=== PATIENT | female | born 1990 | race Caucasian/White ===

== ENCOUNTER 2017-11-24 00:16 | Emergency (ER) | payer OTHER ==
--- NOTE | 2017-11-24 00:34 | ED ---
Female Urogenital HPI - General Chief complaint: Vaginal Bleeding Stated complaint: Abd pain/bleeding. 12 wk pg Time Seen by Provider: 11/24/17 00:20 Source: patient, RN notes reviewed Mode of arrival: ambulatory Limitations: no limitations - History of Present Illness Initial comments: 27-year-old female presents emergency Department chief complaint of vaginal bleeding in early . Patient states that she's approximate toe weeks along her [employer] is Dr. Noriega states that she's had a prior ultrasound which confirmed viable IUP. Patient is A2. Patient states that just prior arrival she went to the bathroom noticed some bright red blood. She does complain of some lower abdominal cramping denies fever, chills, nausea, vomiting , diarrhea constipation. She denies any dysuria. - Related Data Home Medications Medication Instructions Recorded Confirmed Metoclopramide HCl [Reglan] 5 mg PO Q12HR PRN 11/24/17 11/24/17 Pnv No.95/Ferrous Fum/Folic AC 1 each PO 11/24/17 [ Multivitamin Tablet] Allergies Allergy/AdvReac Type Severity Reaction Status Date / Time amoxicillin Allergy Rash/Hives Verified 09/16/17 13:19 hydrocodone bitartrate Allergy Nausea & Verified 09/16/17 13:19 [From Vicodin] Vomiting Penicillins Allergy Anaphylaxis Verified 09/16/17 13:19 procaine HCl [From Novocain] Allergy Rash/Hives Verified 09/16/17 13:19 venom-honey bee Allergy Anaphylaxis Verified 09/16/17 13:19 [bee venom (honey bee)] Review of Systems ROS Statement: Those systems with pertinent positive or pertinent negative responses have been documented in the HPI. ROS Other: All systems not noted in ROS Statement are negative. Past Medical History Past Medical History: Asthma Additional Past Medical History / Comment(s): ovarian cyst History of Any Multi-Drug Resistant Organisms: None Reported Past Surgical History: Section Past Psychological History: No Psychological Hx Reported Smoking Status: Never smoker Past Alcohol Use History: Rare Past Drug Use History: None Reported - Past Family History Mother Family Medical History: Asthma, Cancer General Exam General appearance: alert, in no apparent distress Neck exam: Present: normal inspection, full ROM. Absent: tenderness, meningismus, lymphadenopathy Respiratory exam: Present: normal lung sounds bilaterally. Absent: respiratory distress, wheezes, rales, rhonchi, stridor Cardiovascular Exam: Present: regular rate, normal rhythm, normal heart sounds. Absent: systolic murmur, diastolic murmur, rubs, gallop, clicks GI/Abdominal exam: Present: soft, tenderness (Mild suprapubic), normal bowel sounds. Absent: distended, guarding, rebound, rigid External exam: Present: normal external exam, other (Exam performed with RN Zee) Speculum exam: Present: vaginal bleeding, other ( material noted) Back exam: Absent: CVA tenderness (R), CVA tenderness (L) Skin exam: Present: warm, dry, intact, normal color. Absent: rash Course Vital Signs 11/24/17 00:19 Temperature 98.3 F Pulse Rate 83 Respiratory 20 Rate Blood Pressure 131/60 O2 Sat by Pulse 98 Oximetry - Reevaluation(s) Reevaluation #1: 11/24/17 01:28 Patient had a call light on after ultrasound the day going to the patient she states that she felt a large gush of blood at this time a pelvic exam was performed. There was a large all blood within the vaginal vault there was what appeared to be fetus. Patient updated on results of pelvic Medical Decision Making - Medical Decision Making 27-year-old female presented emergency department for vaginal bleeding in early . Ultrasound shows demise. Patient did have passage of material in emergency department. Bleeding is controlled at this time. She is AB+ blood type. Disposition Clinical Impression: Miscarriage Disposition: HOME SELF-CARE Condition: Stable Instructions: Miscarriage (ED) Additional Instructions: Please return to the Emergency Department if symptoms worsen or any other concerns. Referrals: Sivakumar Santana DO [Primary Care Provider] - 1-2 days Shamir Noriega DO [REFERRING] - 1-2 days Time of Disposition: 01:33
--- NOTE | 2017-11-24 01:18 | US ---
EXAMINATION TYPE: US OB <= 14 wk fetus DATE OF EXAM: 11/24/2017 COMPARISON: NONE CLINICAL HISTORY: Pain. Bleeding and cramping. EXAM PERFORMED: Transabdominal (TA) EXAM MEASUREMENTS: GESTATIONAL AGE / DATING Physician Established: (10 weeks/3 days) EDC: 06/19/2018 Dates by LMP: (10 weeks/3 days) EDC: Dates by First Scan: No previous this is first scan Dates by Current Scan for: (8 weeks/1 days) EDC: 07/05/2018 MATERNAL ANATOMY Uterus: 11.6 x 6.1 x 7.0 cm Right Ovary: 2.8 x 2.6 x 2.3cm Post CDS / Adnexa: wnl Presence of free fluid: no Presence of corpus luteal cyst: yes GESTATION / SURVEY CRL: 1.7 cm (8 weeks/1 days) Heart Rate: No cardiac activity seen. IUP: Demise Beta HcG (if available): Not available at this time Irregular gestational sac seen. pole visualized with no cardiac activity seen. IMPRESSION: There is intrauterine demise at approximately 8 weeks gestation.
[2017-11-24 01:47] VITALS: BP 125/63; PULSE 70; RESP 18; TEMP 98.6
== END 2017-11-24 01:46 | disposition home or self-care (01) ==
LOC: EC 00:16
DX: O03.9 Complete or unspecified spontaneous abortion without complication (principal); Z98.890 Other specified postprocedural states; Z3A.12 12 weeks gestation of pregnancy; Z88.0 Allergy status to penicillin; Z88.5 Allergy status to narcotic agent; Z88.4 Allergy status to anesthetic agent; Z91.030 Bee allergy status; Z79.899 Other long term (current) drug therapy
CPT/HCPCS: 76801; 88300; 99284

== ENCOUNTER 2018-01-13 21:48 | Observation (INO) | payer OTHER ==
[2018-01-13] MEDS ORDERED: NITROGLYCERIN SL TABS 0.4 MG TAB SUBLINGUAL STA ×3 (22:34)
[2018-01-13] MEDS ORDERED: ASPIRIN 81 MG PO STA (22:34)
--- NOTE | 2018-01-13 22:40 | ED ---
General Adult HPI - General Chief complaint: Chest Pain Stated complaint: chest pain Time Seen by Provider: 01/13/18 22:29 Source: patient, RN notes reviewed Mode of arrival: ambulatory Limitations: no limitations - History of Present Illness Initial comments: Patient is a pleasant 27-year-old female presenting to the emergency Department with chest discomfort. Discomfort is described as tightness or and ache. Discomfort is currently 6/10. Patient has discomfort left chest. There is also some discomfort in the left back near the shoulder blade. Symptoms have been occurring for a couple of weeks in the morning. Symptoms usually only last a couple hours at most and resolved. Today symptoms been present all day. Patient did have nausea with one episode of vomiting prior to arrival. Patient feels sweaty. Patient does feel short of breath. No worsening symptoms with position changes or deep breaths. - Related Data Home Medications Medication Instructions Recorded Confirmed No Known Home Medications [No 01/13/18 01/13/18 Known Home Medications] Allergies Allergy/AdvReac Type Severity Reaction Status Date / Time amoxicillin Allergy Rash/Hives Verified 01/13/18 22:29 hydrocodone bitartrate Allergy Nausea & Verified 01/13/18 22:29 [From Vicodin] Vomiting Penicillins Allergy Anaphylaxis Verified 01/13/18 22:29 procaine HCl [From Novocain] Allergy Rash/Hives Verified 01/13/18 22:29 venom-honey bee Allergy Anaphylaxis Verified 01/13/18 22:29 [bee venom (honey bee)] Review of Systems ROS Statement: Those systems with pertinent positive or pertinent negative responses have been documented in the HPI. ROS Other: All systems not noted in ROS Statement are negative. Constitutional: Denies: fever Eyes: Denies: eye pain ENT: Denies: ear pain Respiratory: Reports: dyspnea. Denies: cough Cardiovascular: Reports: chest pain Endocrine: Denies: heat or cold intolerance Gastrointestinal: Reports: nausea, vomiting. Denies: abdominal pain Genitourinary: Denies: dysuria Musculoskeletal: Reports: back pain Skin: Denies: rash Neurological: Denies: weakness Past Medical History Past Medical History: Asthma, No Reported History Additional Past Medical History / Comment(s): ovarian cyst History of Any Multi-Drug Resistant Organisms: None Reported Past Surgical History: Section Past Psychological History: No Psychological Hx Reported Smoking Status: Never smoker Past Alcohol Use History: None Reported, Rare Past Drug Use History: None Reported - Past Family History Mother Family Medical History: Asthma, Cancer General Exam Limitations: no limitations General appearance: alert, in no apparent distress Head exam: Present: atraumatic Eye exam: Present: normal appearance, PERRL ENT exam: Present: normal oropharynx Neck exam: Present: normal inspection Respiratory exam: Present: normal lung sounds bilaterally. Absent: chest wall tenderness Cardiovascular Exam: Present: regular rate, normal rhythm, normal heart sounds. Absent: diastolic murmur Expanded Peripheral pulses: 2+: Radial (R), Radial (L), Posterior Tibialis (R), Posterior Tibialis (L) GI/Abdominal exam: Present: soft. Absent: tenderness Extremities exam: Present: normal inspection. Absent: pedal edema, calf tenderness Back exam: Present: normal inspection. Absent: tenderness Neurological exam: Present: alert Psychiatric exam: Present: normal affect, normal mood Skin exam: Present: normal color Course Vital Signs 01/13/18 01/13/18 01/13/18 21:59 23:01 23:05 Temperature 98.6 F Pulse Rate 68 77 72 Respiratory 18 18 18 Rate Blood Pressure 123/72 123/60 122/58 O2 Sat by Pulse 98 Oximetry EKG Findings - EKG Comments: EKG Findings:: Normal sinus rhythm 65. RI 168. QRS 76. QT 398. QTC 413. Normal axis. Normal QRS. No acute ST change. Medical Decision Making - Medical Decision Making Patient reevaluated and resting comfortably in bed. Symptoms resolved with nitroglycerin. Patient is updated on results and plan. Case discussed in detail with Dr. Santana who is agreeable for admission and cardiology consultation. - Lab Data Result diagrams: 01/13/18 22:45 01/13/18 22:45 Lab Results 01/13/18 01/13/18 01/13/18 Range/Units 22:45 22:45 22:45 WBC 10.8 H (3.8-10.6) k/uL RBC 4.74 (3.80-5.40) m/uL Hgb 11.9 (11.4-16.0) gm/dL Hct 36.9 (34.0-46.0) % MCV 77.9 L (80.0-100.0) fL MCH 25.2 (25.0-35.0) pg MCHC 32.3 (31.0-37.0) g/dL RDW 13.3 (11.5-15.5) % Plt Count 383 (150-450) k/uL Neutrophils % 66 % Lymphocytes % 25 % Monocytes % 5 % Eosinophils % 3 % Basophils % 0 % Neutrophils # 7.1 (1.3-7.7) k/uL Lymphocytes # 2.7 (1.0-4.8) k/uL Monocytes # 0.5 (0-1.0) k/uL Eosinophils # 0.3 (0-0.7) k/uL Basophils # 0.0 (0-0.2) k/uL PT (9.0-12.0) sec INR (<1.2) APTT (22.0-30.0) sec D-Dimer (<0.60) mg/L FEU Sodium 141 (137-145) mmol/L Potassium 3.5 (3.5-5.1) mmol/L Chloride 103 (98-107) mmol/L Carbon Dioxide 26 (22-30) mmol/L Anion Gap 12 mmol/L BUN 6 L (7-17) mg/dL Creatinine 0.86 (0.52-1.04) mg/dL Est GFR (CKD-EPI)AfAm >90 (>60 ml/min/1.73 sqM) Est GFR (CKD-EPI)NonAf >90 (>60 ml/min/1.73 sqM) Glucose 88 (74-99) mg/dL Calcium 9.3 (8.4-10.2) mg/dL Magnesium 1.8 (1.6-2.3) mg/dL Total Bilirubin 0.3 (0.2-1.3) mg/dL AST 13 L (14-36) U/L ALT 18 (9-52) U/L Alkaline Phosphatase 45 (38-126) U/L Total Creatine Kinase 54 (30-135) U/L CK-MB (CK-2) <0.2 (0.0-2.4) ng/mL CK-MB (CK-2) Rel Index Troponin I <0.012 (0.000-0.034) ng/mL Total Protein 6.6 (6.3-8.2) g/dL Albumin 3.9 (3.5-5.0) g/dL Amylase 58 (30-110) U/L Lipase 82 (23-300) U/L 01/13/18 Range/Units 22:45 WBC (3.8-10.6) k/uL RBC (3.80-5.40) m/uL Hgb (11.4-16.0) gm/dL Hct (34.0-46.0) % MCV (80.0-100.0) fL MCH (25.0-35.0) pg MCHC (31.0-37.0) g/dL RDW (11.5-15.5) % Plt Count (150-450) k/uL Neutrophils % % Lymphocytes % % Monocytes % % Eosinophils % % Basophils % % Neutrophils # (1.3-7.7) k/uL Lymphocytes # (1.0-4.8) k/uL Monocytes # (0-1.0) k/uL Eosinophils # (0-0.7) k/uL Basophils # (0-0.2) k/uL PT 9.9 (9.0-12.0) sec INR 1.0 (<1.2) APTT 24.3 (22.0-30.0) sec D-Dimer 0.52 (<0.60) mg/L FEU Sodium (137-145) mmol/L Potassium (3.5-5.1) mmol/L Chloride (98-107) mmol/L Carbon Dioxide (22-30) mmol/L Anion Gap mmol/L BUN (7-17) mg/dL Creatinine (0.52-1.04) mg/dL Est GFR (CKD-EPI)AfAm (>60 ml/min/1.73 sqM) Est GFR (CKD-EPI)NonAf (>60 ml/min/1.73 sqM) Glucose (74-99) mg/dL Calcium (8.4-10.2) mg/dL Magnesium (1.6-2.3) mg/dL Total Bilirubin (0.2-1.3) mg/dL AST (14-36) U/L ALT (9-52) U/L Alkaline Phosphatase (38-126) U/L Total Creatine Kinase (30-135) U/L CK-MB (CK-2) (0.0-2.4) ng/mL CK-MB (CK-2) Rel Index Troponin I (0.000-0.034) ng/mL Total Protein (6.3-8.2) g/dL Albumin (3.5-5.0) g/dL Amylase (30-110) U/L Lipase (23-300) U/L - Radiology Data Interpreted by me: Chest x-ray shows no acute process Disposition Clinical Impression: Unstable angina pectoris Disposition: ADMITTED IP TO THIS [facility] Condition: Serious Referrals: Sivakumar Santana DO [Primary Care Provider] - 1-2 days Decision Time: 23:38
[2018-01-13 23:02] LABS: Basophils % (A) 0 %; Eosinophils # (A) 0.3 k/uL (0-0.7); Eosinophils % (A) 3 %; HCT 36.9 % (34.0-46.0); HGB 11.9 gm/dL (11.4-16.0); Lymphocytes # (A) 2.7 k/uL (1.0-4.8); Lymphocytes % (A) 25 %; MCH 25.2 pg (25.0-35.0); MCHC 32.3 g/dL (31.0-37.0); MCV 77.9 fL (80.0-100.0); Mean Platelet Volume 6.2; Monocytes # (A) 0.5 k/uL (0-1.0); Monocytes % (A) 5 %; Neutrophils # (A) 7.1 k/uL (1.3-7.7); Neutrophils % (A) 66 %; Platelet Count 383 k/uL (150-450); RBC 4.74 m/uL (3.80-5.40); RDW 13.3 % (11.5-15.5); WBC 10.8 k/uL (3.8-10.6)
[2018-01-13 23:03] LABS: ALT 18 U/L (9-52); AST 13 U/L (14-36); Albumin 3.9 g/dL (3.5-5.0); Alkaline Phosphatase 45 U/L (38-126); Amylase 58 U/L (30-110); Anion Gap 12 mmol/L; Blood Urea Nitrogen 6 mg/dL (7-17); Calcium 9.3 mg/dL (8.4-10.2); Carbon Dioxide 26 mmol/L (22-30); Chloride 103 mmol/L (98-107); Glucose 88 mg/dL (74-99); Lipase 82 U/L (23-300); Magnesium 1.8 mg/dL (1.6-2.3); Potassium 3.5 mmol/L (3.5-5.1); Sodium 141 mmol/L (137-145); Total Bilirubin 0.3 mg/dL (0.2-1.3); Total Protein 6.6 g/dL (6.3-8.2)
[2018-01-13] MEDS ORDERED: NITROGLYCERIN OINT 1 INCH/GM PACKET TOPICAL STA (23:07)
[2018-01-13 23:10] LABS: D-Dimer 0.52 mg/L FEU (<0.60); Partial Thromboplastin Time 24.3 sec (22.0-30.0); Prothrombin Time 9.9 sec (9.0-12.0)
[2018-01-13 23:14] LABS: Creatine Kinase 54 U/L (30-135)
[2018-01-13 23:27] LABS: Creatine Kinase MB <0.2 ng/mL (0.0-2.4); Troponin I <0.012 ng/mL (0.000-0.034)
[2018-01-13] MEDS ORDERED: NITROGLYCERIN SL TABS 0.4 MG TAB SUBLINGUAL PRN (23:34)
[2018-01-13] MEDS ORDERED: HEPARIN SODIUM,PORCINE 5,000 UNIT/ML 1 ML VIAL IV PRN (23:34)
[2018-01-13] MEDS ORDERED: HEPARIN SODIUM,PORCINE 5,000 UNIT/ML 1 ML VIAL IV ONE (23:34)
[2018-01-13] MEDS ORDERED: HEPARIN SOD,PORK IN 0.45% NACL 25,000 UNIT in 0.45% NACL 1 500ML.BAG IV SCH (23:45)
--- NOTE | 2018-01-14 00:03 | XR ---
EXAM: XR Chest, 2 Views CLINICAL HISTORY: Chest Pain TECHNIQUE: Frontal and lateral views of the chest. COMPARISON: No relevant prior studies available. FINDINGS: Lungs: Unremarkable. No consolidation. Pleural space: Unremarkable. No pneumothorax. Heart: Unremarkable. No cardiomegaly. Mediastinum: Unremarkable. Bones/joints: Unremarkable. IMPRESSION: Normal 2 views of the chest
[2018-01-14 00:46] VITALS: RESP 16
[2018-01-14 00:55] VITALS: BMI 25.0
[2018-01-14] MEDS ORDERED: NITROGLYCERIN OINT 1 INCH/GM PACKET TOPICAL SCH (06:00)
[2018-01-14 06:44] LABS: Mean Platelet Volume 6.1; Platelet Count 336 k/uL (150-450)
[2018-01-14 07:08] LABS: Cholesterol 134 mg/dL (<200); HDL Cholesterol 37 mg/dL (40-60); LDL Cholesterol,Calculated 84 mg/dL (0-99); Triglycerides 67 mg/dL (<150)
[2018-01-14 07:14] LABS: Creatine Kinase 44 U/L (30-135)
[2018-01-14 07:27] LABS: Creatine Kinase MB <0.2 ng/mL (0.0-2.4); Troponin I <0.012 ng/mL (0.000-0.034)
--- NOTE | 2018-01-14 08:35 | P.HPIM ---
History of Present Illness H&P Date: 01/14/18 Chief Complaint: Chest pain 27-year-old -[place] female who presented to the emergency room with a chief complaint of chest pain x 1 day. The patient stated she began having chest pain yesterday in the epigastric region and under her left breast. She states the pain radiated into her back and left shoulder blade. She states she also has been having nausea and an episode of emesis x 1 yesterday. Patient denies shortness of breath or coughing. She does report intermittent episodes of diaphoresis that she describes as "cold sweats". She denies lightheadedness or dizziness. Pain is not worse when she takes a deep breath and is not reproducible upon palpation. Patient did receive a nitroglycerin in the emergency room and her chest pain resolved. She was started on a heparin drip. The patient was asked if there was a possibility of being . She states "I dont think so but maybe". She states she is due for her menstrual cycle any day. Patient states she had a miscarriage in November of this year. The patient has a history of asthma and ovarian cysts. She is a nonsmoker. Chest x-ray: negative for acute process. EKG: Sinus rhythm. Rate 65. Laboratory data: WBC 10.8. Hemoglobin 11.9. Platelet count 383. Sodium 141. Potassium 3.5. BUN 6. Creatinine 0.86. Magnesium 1.8. AST 13. ALT 18. Amylase 58. Lipase 82. Troponins: Negative 2. D-dimer 0.52 Lipid panel: Triglycerides 67, cholesterol 134, LDL 84, HDL 37 The patient was admitted to the hospital under the care of Dr. Santana to the observation unit. Consultations were placed to cardiology. Review of Systems GENERAL: Patient denies fever. Denies chills. EYES: Denies blurred vision. Denies vision changes. Denies eye pain. EARS, NOSE, MOUTH, & THROAT: Denies headache. Denies sore throat. RESPIRATORY: Denies cough. Denies shortness of breath. Denies sputum production. Denies hemoptysis. CARDIOVASCULAR: Positive for chest pain near the epigastrium and left breast that radiates to her back and left shoulder blade, currently denying chest pain. Denies palpitations. Denies arrhythmias. GASTROINTESTINAL: Positive for nausea and vomiting yesterday, which has resolved. Denies abdominal pain. Denies diarrhea. Denies constipation. Denies heartburn. Denies blood in the stool. GENITOURINARY: Denies urinary frequency. Denies burning. Denies dysuria. Denies cloudy urine. Denies blood in the urine. MUSCULOSKELETAL: Denies myalgias. Denies joint swelling. Denies decreased range of motion beyond patients baseline. INTEGUMENTARY: Denies pruitis. Denies rash. PSYCHIATRIC: Denies suicidal or homicial ideations. ENDOCRINE: Positive for diaphoresis. Denies weight change. Denies polydipsia. Denies polyuria. HEMATOLOGIC: Denies bleeding disorders. Past Medical History Past Medical History: Asthma Additional Past Medical History / Comment(s): ovarian cyst, childhood asthma not on meds now History of Any Multi-Drug Resistant Organisms: None Reported Past Surgical History: Section Additional Past Surgical History / Comment(s): c section x 1 Past Anesthesia/Blood Transfusion Reactions: No Reported Reaction Past Psychological History: No Psychological Hx Reported Smoking Status: Never smoker Past Alcohol Use History: None Reported, Rare Past Drug Use History: None Reported - Past Family History Mother Family Medical History: Asthma, Cancer Medications and Allergies Home Medications Medication Instructions Recorded Confirmed Type No Known Home Medications [No 01/13/18 01/13/18 History Known Home Medications] Allergies Allergy/AdvReac Type Severity Reaction Status Date / Time amoxicillin Allergy Rash/Hives Verified 01/13/18 22:29 hydrocodone bitartrate Allergy Nausea & Verified 01/13/18 22:29 [From Vicodin] Vomiting Penicillins Allergy Anaphylaxis Verified 01/13/18 22:29 procaine HCl [From Novocain] Allergy Rash/Hives Verified 01/13/18 22:29 venom-honey bee Allergy Anaphylaxis Verified 01/13/18 22:29 [bee venom (honey bee)] Physical Exam Vitals: Vital Signs Temp Pulse Pulse Resp BP BP Pulse Ox 01/14/18 07:51 98.4 F 73 16 109/59 97 01/14/18 04:00 98.1 F 71 16 111/47 97 01/14/18 03:16 82 16 01/14/18 01:06 61 16 01/14/18 00:45 98.3 F 72 16 114/65 96 01/14/18 00:12 98 F 68 18 115/56 04/11/18 23:05 72 18 122/58 04/11/18 23:01 77 18 123/60 01/13/18 21:59 98.6 F 68 18 123/72 98 Intake and Output 01/13/18 01/14/18 01/14/18 22:59 06:59 14:59 Intake Total 131.906 Balance 131.906 Intake: Intake, IV Titration 131.906 Amount Heparin Sod,Pork in 0.45% 131.906 NaCl 25,000 unit In 0.45 % NaCl 1 500ml.bag @ 12 UNITS/KG/HR 19.59 mls/hr IV .Q24H [facility] Rx#: [id number] Other: # Voids 2 Weight 81.647 kg 81.6 kg GENERAL: This is a 27-year-old -[place] female in no apparent distress at the time of examination. Pleasant and cooperative. HEENT: Head is atraumatic, normocephalic. Pupils are equal, round, and reactive to light. Sclerae anicteric. Conjunctivae are clear. Mucus membranes of the mouth are moist. Neck is supple. RESPIRATORY: Clear to ausculation. No wheezes, rales, or rhonchi. No use of accessory muscles. Patient maintaining oxygen saturation greater than 92%. No chest wall tenderness is noted on palpation or with deep breathing. CARDIOVASCULAR: Regular rate and rhythm. S1 and S2 noted. No systolic or diastolic murmur auscultated. No JVD noted. No S3 or S4 noted. GASTROINTESTINAL: No distention noted. Abdomen soft and round. Normal active bowel sounds auscultated x 4 quadrants. No pain or tenderness noted upon palpation. INTEGUMENTARY: No cyanosis. No jaundice. No rashes noted. No cellulitis noted. EXTREMITIES: 2+ peripheral pulses. No evidence of peripheral edema. No calf tenderness noted. NEUROLOGIC: Cranial nerves II-XII intact. PSYCHIATRIC: Awake, alert, and oriented X 3. Appropriate affect. Intact judgement and insight. Results CBC & Chem 7: 01/14/18 05:59 01/13/18 22:45 Labs: Abnormal Lab Results - Last 24 Hours (Table) 01/13/18 01/13/18 01/14/18 Range/Units 22:45 22:45 05:59 WBC 10.8 H (3.8-10.6) k/uL MCV 77.9 L (80.0-100.0) fL APTT (22.0-30.0) sec BUN 6 L (7-17) mg/dL AST 13 L (14-36) U/L HDL Cholesterol 37 L (40-60) mg/dL 01/14/18 Range/Units 05:59 WBC (3.8-10.6) k/uL MCV (80.0-100.0) fL APTT 39.0 H (22.0-30.0) sec BUN (7-17) mg/dL AST (14-36) U/L HDL Cholesterol (40-60) mg/dL Thrombosis Risk Factor Assmnt - Choose All That Apply Any of the Below Risk Factors Present?: Yes Each Factor Represents 1 point: or Thrombosis Risk Factor Assessment Total Risk Factor Score: 1 Thrombosis Risk Factor Assessment Level: Low Risk Assessment and Plan Plan: ASSESSMENT: Chest pain with radiation to patient's back and left scapula, troponins negative x 2, cardiology consulted to rule out acute coronary syndrome Nausea and vomiting in a sexually active woman of child-bearing age, r/o History of miscarriage 11/2017 Asthma, no evidence of acute exacerbation PLAN: Cardiology on consult. Await further recommendations Urine test and serum HCG, although results may be falsely positive secondary to recent miscarriage Home meds as appropriate Monitor labs Monitor vital signs and address as appropriate Further recommendations pending patient's course If patient is cleared from a cardiac standpoint, she may be discharge home this afternoon Nurse practitioner note has been reviewed by physician. Signing provider agrees with the documented findings, assessment, and plan of care.
[2018-01-14] MEDS ORDERED: ASPIRIN 325 MG TAB PO SCH (09:00)
[2018-01-14] MEDS ORDERED: ONDANSETRON 4 MG/2 ML VIAL IVP PRN (09:05)
[2018-01-14 11:37] LABS: Creatine Kinase 43 U/L (30-135)
[2018-01-14 11:49] LABS: Creatine Kinase MB <0.2 ng/mL (0.0-2.4); Troponin I <0.012 ng/mL (0.000-0.034)
[2018-01-14] MEDS: ACETAMINOPHEN TAB 325 MG TAB PO PRN ×2 (12:00→16:43)
--- NOTE | 2018-01-14 12:36 | P.CRDCN ---
History of Present Illness Consult date: 01/14/18 History of present illness: Mrs. Caballero is a pleasant 27-year-old -Indian female past medical history significant for asthma and miscarriages x3. She denies history of coronary artery disease, hypertension, dyslipidemia or diabetes mellitus. She also denies family history of heart disease. We have been asked to see her in consultation for complaints of chest pain. She states for the last few weeks every morning when she wakes up she has a pain in her chest along her left breast that radiates around to the left mid/upper back. She is unsure if the pain starts in the chest or in the back however. The pain typically is not associated with any other symptoms and goes away on its own after a couple hours. Yesterday morning she woke up with the same pain but this time she felt extremely nauseated and vomited one time. After vomiting the pain moved down into her left arm and left ear. It was with these new symptoms she decided to present to ED. The pain persisted for the typical course of a couple hours and seemed to improve after initiation of nitropaste. Telemetry tracings have been unremarkable overnight. With the nitropaste on this morning she again developed the same chest pain as she has been experiencing. An EKG was obtained and was unremarkable. EKG on arrival reveals sinus mechanism with no acute ST or T-wave abnormalities. Chest xray is negative for an acute cardiopulmonary process. Laboratory data reviewed, white blood cell count 10.8, hemoglobin 11.9, platelets 336, d-dimer 0.52, potassium 3.5, magnesium 1.8, creatinine 0.86, cardiac enzymes negative 3. Review of Systems At the time my exam: CONSTITUTIONAL: Denies fever. Denies chills. EYES: Denies blurred vision. Denies vision changes. Denies eye pain. EARS, NOSE, MOUTH & THROAT: Denies headache. Denies sore throat. Denies ear pain. CARDIOVASCULAR: Complains of chest pain. Denies shortness of breath. Denies orthopnea. Denies PND. Denies palpitations. RESPIRATORY: Denies cough. GASTROINTESTINAL: Denies abdominal pain. Denies diarrhea. Denies constipation. Denies nausea. Denies vomiting. MUSCULOSKELETAL: Denies myalgias. INTEGUMENTARY: Denies pruitis. Denies rash. NEUROLOGIC: Denies numbness. Denies tingling. Denies weakness. PSYCHIATRIC: Denies anxiety. Denies depression. ENDOCRINE: Denies fatigue. Denies weight change. Denies polydipsia. Denies polyurina. GENITOURINARY: Denies burning, hematuria or urgency with micturation. HEMATOLOGIC: Denies history of anemia. Denies bleeding. Past Medical History Past Medical History: Asthma Additional Past Medical History / Comment(s): ovarian cyst, childhood asthma not on meds now History of Any Multi-Drug Resistant Organisms: None Reported Past Surgical History: Section Additional Past Surgical History / Comment(s): c section x 1 Past Anesthesia/Blood Transfusion Reactions: No Reported Reaction Past Psychological History: No Psychological Hx Reported Smoking Status: Never smoker Past Alcohol Use History: None Reported, Rare Past Drug Use History: None Reported - Past Family History Mother Family Medical History: Asthma, Cancer Medications and Allergies Home Medications Medication Instructions Recorded Confirmed Type No Known Home Medications [No 01/13/18 01/13/18 History Known Home Medications] Allergies Allergy/AdvReac Type Severity Reaction Status Date / Time amoxicillin Allergy Rash/Hives Verified 01/13/18 22:29 hydrocodone bitartrate Allergy Nausea & Verified 01/13/18 22:29 [From Vicodin] Vomiting Penicillins Allergy Anaphylaxis Verified 01/13/18 22:29 procaine HCl [From Novocain] Allergy Rash/Hives Verified 01/13/18 22:29 venom-honey bee Allergy Anaphylaxis Verified 01/13/18 22:29 [bee venom (honey bee)] Physical Exam Vitals: Vital Signs Temp Pulse Pulse Resp BP BP Pulse Ox 01/14/18 04:00 98.1 F 71 16 111/47 97 01/14/18 03:16 82 16 01/14/18 01:06 61 16 01/14/18 00:45 98.3 F 72 16 114/65 96 01/14/18 00:12 98 F 68 18 115/56 01/13/18 23:05 72 18 122/58 01/13/18 23:01 77 18 123/60 01/13/18 21:59 98.6 F 68 18 123/72 98 Intake and Output 01/13/18 01/14/18 01/14/18 22:59 06:59 14:59 Intake Total 131.906 Balance 131.906 Intake: Intake, IV Titration 131.906 Amount Heparin Sod,Pork in 0.45% 131.906 NaCl 25,000 unit In 0.45 % NaCl 1 500ml.bag @ 12 UNITS/KG/HR 19.59 mls/hr IV .Q24H [facility] Rx#: [id number] Other: # Voids 2 Weight 81.647 kg 81.6 kg Blood pressure 109/59 heart rate 73 afebrile maintaining oxygen saturation on room air GENERAL: This is a 27-year-old -Indian female in no apparent distress at the time of my examination. HEENT: Head is atraumatic, normocephalic. Pupils are equal, round. Sclerae anicteric. Conjunctivae are clear. Mucous membranes of the mouth are moist. Neck is supple. There is no jugular venous distention. No carotid bruit is heard. LUNGS: Clear to auscultation no wheezes, rales or rhonchi. Positive chest wall tenderness is noted on palpation. HEART: Regular rate and rhythm without murmurs, rubs or gallops. S1 and S2 heard. ABDOMEN: Soft, nontender. Bowel sounds are heard. No organomegaly noted. EXTREMITIES: No evidence of peripheral edema and no calf tenderness noted. VASCULAR: Radial and dorsalis pedis pulses palpated, no evidence of clubbing. NEUROLOGIC: Patient is awake, alert and oriented x3. Results 01/14/18 05:59 01/13/18 22:45 Cardiac Enzymes 01/13/18 01/13/18 01/14/18 Range/Units 22:45 22:45 05:59 AST 13 L (14-36) U/L CK-MB (CK-2) <0.2 <0.2 (0.0-2.4) ng/mL Troponin I <0.012 <0.012 (0.000-0.034) ng/mL Coagulation 01/13/18 01/14/18 Range/Units 22:45 05:59 PT 9.9 (9.0-12.0) sec APTT 24.3 39.0 H (22.0-30.0) sec Lipids 01/14/18 Range/Units 05:59 Triglycerides 67 (<150) mg/dL Cholesterol 134 (<200) mg/dL HDL Cholesterol 37 L (40-60) mg/dL CBC 01/13/18 01/14/18 Range/Units 22:45 05:59 WBC 10.8 H (3.8-10.6) k/uL RBC 4.74 (3.80-5.40) m/uL Hgb 11.9 (11.4-16.0) gm/dL Hct 36.9 (34.0-46.0) % Plt Count 383 336 (150-450) k/uL Comprehensive Metabolic Panel 01/13/18 Range/Units 22:45 Sodium 141 (137-145) mmol/L Potassium 3.5 (3.5-5.1) mmol/L Chloride 103 (98-107) mmol/L Carbon Dioxide 26 (22-30) mmol/L BUN 6 L (7-17) mg/dL Creatinine 0.86 (0.52-1.04) mg/dL Glucose 88 (74-99) mg/dL Calcium 9.3 (8.4-10.2) mg/dL AST 13 L (14-36) U/L ALT 18 (9-52) U/L Alkaline Phosphatase 45 (38-126) U/L Total Protein 6.6 (6.3-8.2) g/dL Albumin 3.9 (3.5-5.0) g/dL Current Medications Generic Name Dose Route Start Last Admin Trade Name Freq PRN Reason Stop Dose Admin Aspirin 325 mg 01/14/18 09:00 Aspirin PO DAILY [facility] Heparin Sodium (Porcine) 0 unit 01/13/18 23:34 Heparin IV Q6HR PRN Low PTT Protocol Heparin Sodium/Sodium Chloride 500 mls @ 19.59 mls/hr 01/13/18 23:45 06:51 25,000 unit/ Sodium Chloride IV 15.18 units/kg/hr .Q24H [facility] 24.8 mls/hr Protocol Titration 12 UNITS/KG/HR Nitroglycerin 1 inch 01/14/18 06:00 01/14/18 06:39 Nitro-Bid Oint TOPICAL Not Given Q6HR [facility] Nitroglycerin 0.4 mg 01/13/18 23:34 Nitrostat SUBLINGUAL Q5M PRN Chest Pain Intake and Output 01/13/18 01/14/18 01/14/18 22:59 06:59 14:59 Intake Total 131.906 Balance 131.906 Intake: Intake, IV Titration 131.906 Amount Heparin Sod,Pork in 0.45% 131.906 NaCl 25,000 unit In 0.45 % NaCl 1 500ml.bag @ 12 UNITS/KG/HR 19.59 mls/hr IV .Q24H [facility] Rx#: [id number] Other: # Voids 2 Weight 81.647 kg 81.6 kg 01/14/18 05:59 01/13/18 22:45 Assessment and Plan Assessment: ASSESSMENT 1. Chest pain, atypical. An acute coronary event has been ruled out with no EKG evidence of ischemia and negative cardiac enzymes. EKG obtained during episode of pain with no abnormalities noted. 2. History of asthma PLAN Perform exercise stress test tomorrow morning to assess for stress induced ischemia. Discontinue heparin infusion after third troponin is negative. Remove nitropaste and increase activity. Thank you kindly for this consultation. Nurse Practitioner note has been reviewed, I agree with a documented findings and plan of care. Patient was seen and examined.
--- NOTE | 2018-01-15 08:09 | P.PN ---
Subjective Progress Note Date: 01/15/18 27-year-old -[place] female who presented to the emergency room with a chief complaint of chest pain x 1 day. The patient stated she began having chest pain yesterday in the epigastric region and under her left breast. She states the pain radiated into her back and left shoulder blade. She states she also has been having nausea and an episode of emesis x 1 yesterday. Patient denies shortness of breath or coughing. She does report intermittent episodes of diaphoresis that she describes as "cold sweats". She denies lightheadedness or dizziness. Pain is not worse when she takes a deep breath and is not reproducible upon palpation. Patient did receive a nitroglycerin in the emergency room and her chest pain resolved. She was started on a heparin drip. The patient was asked if there was a possibility of being . She states "I dont think so but maybe". She states she is due for her menstrual cycle any day. Patient states she had a miscarriage in November of this year. The patient has a history of asthma and ovarian cysts. She is a nonsmoker. Chest x-ray: negative for acute process. EKG: Sinus rhythm. Rate 65. Laboratory data: WBC 10.8. Hemoglobin 11.9. Platelet count 383. Sodium 141. Potassium 3.5. BUN 6. Creatinine 0.86. Magnesium 1.8. AST 13. ALT 18. Amylase 58. Lipase 82. Troponins: Negative 2. D-dimer 0.52 Lipid panel: Triglycerides 67, cholesterol 134, LDL 84, HDL 37 The patient was admitted to the hospital under the care of Dr. Santana to the observation unit. Consultations were placed to cardiology. 01/15/2018 Patient seen and evaluated on rounds with Dr. Santana. Spouse at the bedside. Patient denies any further episodes of chest pain. Denies nausea or vomiting. Last recorded BP is 104/53, however spouse states that most recent BP was 90s/ 50s. Patient is NPO this morning and scheduled for stress test today. Objective - Vital Signs Vital signs: Vital Signs Temp 97.9 F 01/15/18 03:16 Pulse 73 01/15/18 03:16 Resp 16 01/15/18 03:17 BP 104/53 01/15/18 03:16 Pulse Ox 98 01/15/18 03:16 Intake & Output 01/14/18 01/15/18 01/15/18 18:59 06:59 18:59 Intake Total 240 Balance 240 Intake: Oral 240 Other: Voiding Method Toilet Toilet # Voids 1 2 - Exam GENERAL: This is a 27-year-old -[place]ian female in no apparent distress at the time of examination. Pleasant and cooperative. HEENT: Head is atraumatic, normocephalic. Pupils are equal, round, and reactive to light. Sclerae anicteric. Conjunctivae are clear. Mucus membranes of the mouth are moist. Neck is supple. RESPIRATORY: Clear to ausculation. No wheezes, rales, or rhonchi. No use of accessory muscles. Patient maintaining oxygen saturation greater than 92%. No chest wall tenderness is noted on palpation or with deep breathing. CARDIOVASCULAR: Regular rate and rhythm. S1 and S2 noted. No systolic or diastolic murmur auscultated. No JVD noted. No S3 or S4 noted. GASTROINTESTINAL: No distention noted. Abdomen soft and round. Normal active bowel sounds auscultated x 4 quadrants. No pain or tenderness noted upon palpation. INTEGUMENTARY: No cyanosis. No jaundice. No rashes noted. No cellulitis noted. EXTREMITIES: 2+ peripheral pulses. No evidence of peripheral edema. No calf tenderness noted. NEUROLOGIC: Cranial nerves II-XII intact. PSYCHIATRIC: Awake, alert, and oriented X 3. Appropriate affect. Intact judgement and insight. - Labs CBC & Chem 7: 01/14/18 05:59 01/13/18 22:45 Assessment and Plan Plan: ASSESSMENT: Chest pain with radiation to patient's back and left scapula, troponins negative x 3, acute coronary syndrome ruled out per cardiology Nausea and vomiting in a sexually active woman of child-bearing age, ruled out History of miscarriage 11/2017 Asthma, no evidence of acute exacerbation PLAN: Cardiology on consult. Stress test today Monitor vital signs and address as appropriate Further recommendations pending patient's course If patient is cleared from a cardiac standpoint, she may be discharge home this afternoon Nurse practitioner note has been reviewed by physician. Signing provider agrees with the documented findings, assessment, and plan of care.
--- NOTE | 2018-01-15 10:02 | P.PN ---
Subjective Progress Note Date: 01/15/18 Mrs. Caballero is seen and examined this morning resting in bed. She states she again felt the same discomfort in her chest upon waking up this morning. Although is wasn't as bad as was previously felt. Blood pressure 96/50 heart rate 77 afebrile. Telemetry tracings have been unremarkable. Objective - Vital Signs Vital signs: Vital Signs Temp 98 F 01/15/18 08:00 Pulse 77 01/15/18 08:00 Resp 16 01/15/18 08:00 BP 96/50 01/15/18 08:00 Pulse Ox 98 01/15/18 08:00 Intake & Output 01/14/18 01/15/18 01/15/18 18:59 06:59 18:59 Intake Total 240 Balance 240 Intake: Oral 240 Other: Voiding Method Toilet Toilet Toilet # Voids 1 2 - Exam GENERAL: Well-appearing, well-nourished and in no acute distress. NECK: Supple without JVD or thyromegaly. LUNGS: Breath sounds clear to auscultation bilaterally. Respiration equal and unlabored. No wheezes, rales or rhonchi. HEART: Regular rate and rhythm without murmurs, rubs or gallops. S1 and S2 heard. EXTREMITIES: Normal range of motion, no edema. No clubbing or cyanosis. Peripheral pulses intact and strong. - Labs CBC & Chem 7: 01/14/18 05:59 01/13/18 22:45 Assessment and Plan Assessment: ASSESSMENT 1. Chest pain, atypical. An acute coronary event has been ruled out with no EKG evidence of ischemia and negative cardiac enzymes. EKG obtained during episode of pain with no abnormalities noted. 2. History of asthma PLAN Proceed with exercise stress test as was previously ordered. If this is normal she is stable from a cardiac perspective. Follow up with PCP upon discharge. Nurse Practitioner note has been reviewed, I agree with a documented findings and plan of care. Patient was seen and examined.
[2018-01-15 11:59] VITALS: BP 102/47; PULSE 74; TEMP 98.6
--- NOTE | 2018-01-15 13:19 | EST ---
EXERCISE STRESS AGE: 27 SEX: F HT: 5'11" WT: 179 PROTOCOL: Aashish Stress test STAGE: III DURATION OF EXERCISE: 9:00 HEART RATE REST: 75 BLOOD PRESSURE REST: 107/59 MAXIMUM HEART RATE ACHIEVED: 164 MAXIMUM BLOOD PRESSURE: 163/99 85% MPHR: 162 100% MPHR: 191 METS: 10.5 INDICATIONS: Chest pain. CLINICAL INFORMATION: Baseline heart rate 75 beats per minute. Baseline blood pressure 107/59 mmHg. Patient exercised on Aashish protocol for 9 minutes achieving a peak heart rate of 164 beats per minute. Normal blood pressure response to exercise. Baseline 12-lead ECG shows sinus rhythm in normal cardiac intervals and normal ST segments. There was no ECG evidence for ischemia. No arrhythmias were noted. IMPRESSION: 1. Good exercise capacity. 2. No ECG evidence for ischemia or arrhythmia. 3. Normal heart rate and blood pressure response to exercise. MMODL / IJN: [id number] /
--- NOTE | 2018-01-15 14:05 | P.DS ---
Providers Date of admission: 01/13/18 23:34 Expected date of discharge: 01/15/18 Attending physician: Sivakumar Santana Consults: 01/13/18 23:34 Consult Physician Urgent Consulting Provider: Stephanie Arevalo Consult Reason/Comments: Unstable angina Do you want consulting provider notified?: Yes Primary care physician: Sivakumar Santana [facility] Course: 27-year-old -[place] female who presented to the emergency room with a chief complaint of chest pain x 1 day. The patient stated she began having chest pain yesterday in the epigastric region and under her left breast. She states the pain radiated into her back and left shoulder blade. She states she also has been having nausea and an episode of emesis x 1 yesterday. Patient denies shortness of breath or coughing. She does report intermittent episodes of diaphoresis that she describes as "cold sweats". She denies lightheadedness or dizziness. Pain is not worse when she takes a deep breath and is not reproducible upon palpation. Patient did receive a nitroglycerin in the emergency room and her chest pain resolved. She was started on a heparin drip. The patient was asked if there was a possibility of being . She states "I dont think so but maybe". She states she is due for her menstrual cycle any day. Patient states she had a miscarriage in November of this year. The patient has a history of asthma and ovarian cysts. She is a nonsmoker. Chest x-ray: negative for acute process. EKG: Sinus rhythm. Rate 65. Laboratory data: WBC 10.8. Hemoglobin 11.9. Platelet count 383. Sodium 141. Potassium 3.5. BUN 6. Creatinine 0.86. Magnesium 1.8. AST 13. ALT 18. Amylase 58. Lipase 82. Troponins: Negative 2. D-dimer 0.52 Lipid panel: Triglycerides 67, cholesterol 134, LDL 84, HDL 37 The patient was evaluated by cardiology. She underwent a stress test on 2017 which was negative for ischemia. The patient was cleared for discharge from a cardiac standpoint. She was deemed stable for discharge per Dr. Santana. She is to follow up on an outpatient basis. DISCHARGE DIAGNOSIS: Chest pain with radiation to patient's back and left scapula, troponins negative x 3, acute coronary syndrome ruled out per cardiology Nausea and vomiting in a sexually active woman of child-bearing age, ruled out, resolved at the time of discharge History of miscarriage 11/2017 Asthma, no evidence of acute exacerbation Nurse practitioner note has been reviewed by physician. Signing provider agrees with the documented findings, assessment, and plan of care. Patient Condition at Discharge: Stable Plan - Discharge Summary New Discharge Prescriptions: Continue No Known Home Medications [No Known Home Medications] Discharge Medication List No Known Home Medications [No Known Home Medications] 01/13/18 [History] Follow up Appointment(s)/Referral(s): Sivakumar Santana DO [Primary Care Provider] - 1-2 days Patient Instructions/Handouts: Chest Pain (DC) Discharge Disposition: HOME SELF-CARE
== END 2018-01-15 12:11 | disposition home or self-care (01) ==
LOC: EC 21:48 → 3OBS 23:34
PROVIDERS: ADMIT Family Medicine; ATTEND Family Medicine
DX: R07.89 Other chest pain (principal); R11.2 Nausea with vomiting, unspecified; R61 Generalized hyperhidrosis; R10.13 Epigastric pain; R06.02 Shortness of breath; Z88.0 Allergy status to penicillin; Z88.4 Allergy status to anesthetic agent; Z88.5 Allergy status to narcotic agent; Z91.030 Bee allergy status; Z87.59 Personal history of other complications of pregnancy, childbirth and the puerperium; Z87.09 Personal history of other diseases of the respiratory system; Z87.42 Personal history of other diseases of the female genital tract; Z82.5 Family history of asthma and other chronic lower respiratory diseases; Z80.9 Family history of malignant neoplasm, unspecified
CPT/HCPCS: 99285 ×2; 96365 ×2; 96376 ×2; 96366; 96375; 36415; 93005; 93017; 85379; 80061; 80053; 82150; 82550 ×2; 82553 ×2; 83690; 83735; 84484 ×2; 85025; 85049; 85610; 85730 ×2; 84702; 71046; G0378 ×3; J1644 ×2; J2405

== ENCOUNTER 2018-07-06 15:21 | Emergency (ER) | payer OTHER ==
--- NOTE | 2018-07-06 15:50 | ED ---
General Adult HPI - General Chief complaint: Chest Pain Stated complaint: chest pain Time Seen by Provider: 07/06/18 15:33 Source: patient, RN notes reviewed Mode of arrival: ambulatory Limitations: no limitations - History of Present Illness Initial comments: Patient is a pleasant 27-year-old female presenting to the emergency Department with chest discomfort. Symptoms have been occurring for around 6 months. Patient had an episode again this morning around 6:30 or so. Patient has had an ache of her left elbow since that time. Discomfort seems in the elbow and does increase with movement. Discomfort is mild of the elbow. No chest discomfort. Patient was seen and evaluated around 5 or 6 months ago and had full cardiac workup including stress test and was told everything was okay at that time. Patient has seen her doctor recently, most recent was around a week ago. Patient denies any dyspnea. No nausea or vomiting. No chest discomfort at this time. Patient is approximately 6 weeks gravid. No pelvic pain. No vaginal bleeding. - Related Data Home Medications Medication Instructions Recorded Confirmed Omeprazole 20 mg PO DAILY 07/06/18 07/06/18 Pnv,Calcium 72/Iron/Folic Acid 1 tab PO DAILY 07/06/18 07/06/18 [ Plus Tablet] Ranitidine HCl 150 mg PO HS 07/06/18 07/06/18 Allergies Allergy/AdvReac Type Severity Reaction Status Date / Time amoxicillin Allergy Rash/Hives Verified 07/06/18 15:43 hydrocodone bitartrate Allergy Nausea & Verified 07/06/18 15:43 [From Vicodin] Vomiting Penicillins Allergy Anaphylaxis Verified 07/06/18 15:43 procaine HCl [From Novocain] Allergy Rash/Hives Verified 07/06/18 15:43 venom-honey bee Allergy Anaphylaxis Verified 07/06/18 15:43 [bee venom (honey bee)] Review of Systems ROS Statement: Those systems with pertinent positive or pertinent negative responses have been documented in the HPI. ROS Other: All systems not noted in ROS Statement are negative. Constitutional: Denies: fever Eyes: Denies: eye pain ENT: Denies: ear pain Respiratory: Denies: cough, dyspnea Cardiovascular: Reports: chest pain Endocrine: Denies: fatigue Gastrointestinal: Denies: abdominal pain Genitourinary: Denies: dysuria Musculoskeletal: Denies: back pain Skin: Denies: rash Neurological: Denies: weakness Past Medical History Past Medical History: Asthma Additional Past Medical History / Comment(s): ovarian cyst, childhood asthma not on meds now History of Any Multi-Drug Resistant Organisms: None Reported Past Surgical History: Section Additional Past Surgical History / Comment(s): c section x 1 Past Anesthesia/Blood Transfusion Reactions: No Reported Reaction Past Psychological History: No Psychological Hx Reported Smoking Status: Never smoker Past Alcohol Use History: None Reported, Rare Past Drug Use History: None Reported - Past Family History Mother Family Medical History: Asthma, Cancer General Exam Limitations: no limitations General appearance: alert, in no apparent distress Head exam: Present: atraumatic Eye exam: Present: normal appearance, PERRL ENT exam: Present: normal oropharynx Neck exam: Present: normal inspection Respiratory exam: Present: normal lung sounds bilaterally. Absent: chest wall tenderness Cardiovascular Exam: Present: regular rate, normal rhythm Expanded Peripheral pulses: 2+: Radial (R), Radial (L), Dorsalis Pedis (R), Dorsalis Pedis (L) GI/Abdominal exam: Present: soft. Absent: tenderness Extremities exam: Present: normal inspection. Absent: pedal edema, calf tenderness Neurological exam: Present: alert Psychiatric exam: Present: normal affect, normal mood Skin exam: Present: normal color Course Vital Signs 07/06/18 15:24 Temperature 98.4 F Pulse Rate 66 Respiratory 16 Rate Blood Pressure 117/74 O2 Sat by Pulse 99 Oximetry EKG Findings - EKG Comments: EKG Findings:: Normal sinus rhythm 66. CA 166. QRS 80. QT 400. QTc 419. Normal axis. Normal QRS. No acute ST change. Medical Decision Making - Medical Decision Making Patient reevaluated and resting comfortably in bed. Patient symptom-free at this time. Patient updated on results and plan. Patient is comfortable with discharge home. - Lab Data Result diagrams: 07/06/18 16:00 07/06/18 16:00 Lab Results 07/06/18 07/06/18 07/06/18 Range/Units 16:00 16:00 16:00 WBC 8.4 (3.8-10.6) k/uL RBC 4.82 (3.80-5.40) m/uL Hgb 12.4 (11.4-16.0) gm/dL Hct 38.6 (34.0-46.0) % MCV 80.1 (80.0-100.0) fL MCH 25.8 (25.0-35.0) pg MCHC 32.2 (31.0-37.0) g/dL RDW 13.7 (11.5-15.5) % Plt Count 350 (150-450) k/uL Neutrophils % 73 % Lymphocytes % 20 % Monocytes % 4 % Eosinophils % 2 % Basophils % 0 % Neutrophils # 6.2 (1.3-7.7) k/uL Lymphocytes # 1.7 (1.0-4.8) k/uL Monocytes # 0.4 (0-1.0) k/uL Eosinophils # 0.2 (0-0.7) k/uL Basophils # 0.0 (0-0.2) k/uL PT (9.0-12.0) sec INR (<1.2) APTT (22.0-30.0) sec Sodium 139 (137-145) mmol/L Potassium 3.9 (3.5-5.1) mmol/L Chloride 108 H (98-107) mmol/L Carbon Dioxide 24 (22-30) mmol/L Anion Gap 7 mmol/L BUN 6 L (7-17) mg/dL Creatinine 0.86 (0.52-1.04) mg/dL Est GFR (CKD-EPI)AfAm >90 (>60 ml/min/1.73 sqM) Est GFR (CKD-EPI)NonAf >90 (>60 ml/min/1.73 sqM) Glucose 85 (74-99) mg/dL Calcium 8.9 (8.4-10.2) mg/dL Magnesium 1.9 (1.6-2.3) mg/dL Total Bilirubin 0.5 (0.2-1.3) mg/dL AST 16 (14-36) U/L ALT 19 (9-52) U/L Alkaline Phosphatase 50 (38-126) U/L Total Creatine Kinase 48 (30-135) U/L CK-MB (CK-2) <0.2 (0.0-2.4) ng/mL CK-MB (CK-2) Rel Index Troponin I <0.012 (0.000-0.034) ng/mL Total Protein 6.9 (6.3-8.2) g/dL Albumin 4.0 (3.5-5.0) g/dL 07/06/18 Range/Units 16:00 WBC (3.8-10.6) k/uL RBC (3.80-5.40) m/uL Hgb (11.4-16.0) gm/dL Hct (34.0-46.0) % MCV (80.0-100.0) fL MCH (25.0-35.0) pg MCHC (31.0-37.0) g/dL RDW (11.5-15.5) % Plt Count (150-450) k/uL Neutrophils % % Lymphocytes % % Monocytes % % Eosinophils % % Basophils % % Neutrophils # (1.3-7.7) k/uL Lymphocytes # (1.0-4.8) k/uL Monocytes # (0-1.0) k/uL Eosinophils # (0-0.7) k/uL Basophils # (0-0.2) k/uL PT 10.0 (9.0-12.0) sec INR 1.0 (<1.2) APTT 24.7 (22.0-30.0) sec Sodium (137-145) mmol/L Potassium (3.5-5.1) mmol/L Chloride (98-107) mmol/L Carbon Dioxide (22-30) mmol/L Anion Gap mmol/L BUN (7-17) mg/dL Creatinine (0.52-1.04) mg/dL Est GFR (CKD-EPI)AfAm (>60 ml/min/1.73 sqM) Est GFR (CKD-EPI)NonAf (>60 ml/min/1.73 sqM) Glucose (74-99) mg/dL Calcium (8.4-10.2) mg/dL Magnesium (1.6-2.3) mg/dL Total Bilirubin (0.2-1.3) mg/dL AST (14-36) U/L ALT (9-52) U/L Alkaline Phosphatase (38-126) U/L Total Creatine Kinase (30-135) U/L CK-MB (CK-2) (0.0-2.4) ng/mL CK-MB (CK-2) Rel Index Troponin I (0.000-0.034) ng/mL Total Protein (6.3-8.2) g/dL Albumin (3.5-5.0) g/dL Disposition Clinical Impression: Chest pain Disposition: HOME SELF-CARE Condition: Stable Instructions: Chest Pain (ED) Additional Instructions: Please follow-up with primary care physician tomorrow. Return for increased pain, worsening or change in symptoms, difficulty breathing, or other concerns. Is patient prescribed a controlled substance at d/c from ED?: No Referrals: Alexander Sahni MD [Primary Care Provider] - 1-2 days Time of Disposition: 17:06
[2018-07-06 16:19] LABS: Basophils % (A) 0 %; Eosinophils # (A) 0.2 k/uL (0-0.7); Eosinophils % (A) 2 %; HCT 38.6 % (34.0-46.0); HGB 12.4 gm/dL (11.4-16.0); Lymphocytes # (A) 1.7 k/uL (1.0-4.8); Lymphocytes % (A) 20 %; MCH 25.8 pg (25.0-35.0); MCHC 32.2 g/dL (31.0-37.0); MCV 80.1 fL (80.0-100.0); Mean Platelet Volume 6.1; Monocytes # (A) 0.4 k/uL (0-1.0); Monocytes % (A) 4 %; Neutrophils # (A) 6.2 k/uL (1.3-7.7); Neutrophils % (A) 73 %; Platelet Count 350 k/uL (150-450); RBC 4.82 m/uL (3.80-5.40); RDW 13.7 % (11.5-15.5); WBC 8.4 k/uL (3.8-10.6)
[2018-07-06 16:28] LABS: ALT 19 U/L (9-52); AST 16 U/L (14-36); Alkaline Phosphatase 50 U/L (38-126); Anion Gap 7 mmol/L; Blood Urea Nitrogen 6 mg/dL (7-17); Calcium 8.9 mg/dL (8.4-10.2); Carbon Dioxide 24 mmol/L (22-30); Chloride 108 mmol/L (98-107); Glucose 85 mg/dL (74-99); Magnesium 1.9 mg/dL (1.6-2.3); Potassium 3.9 mmol/L (3.5-5.1); Sodium 139 mmol/L (137-145); Total Bilirubin 0.5 mg/dL (0.2-1.3); Total Protein 6.9 g/dL (6.3-8.2)
[2018-07-06 16:36] LABS: Partial Thromboplastin Time 24.7 sec (22.0-30.0)
[2018-07-06 16:38] LABS: Creatine Kinase 48 U/L (30-135)
[2018-07-06 16:48] LABS: Creatine Kinase MB <0.2 ng/mL (0.0-2.4); Troponin I <0.012 ng/mL (0.000-0.034)
[2018-07-06 17:18] VITALS: BP 120/64; PULSE 85; RESP 18; TEMP 98.7
== END 2018-07-06 17:14 | disposition home or self-care (01) ==
LOC: EC 15:21
DX: O99.89 Other specified diseases and conditions complicating pregnancy, childbirth and the puerperium (principal); R07.89 Other chest pain; Z3A.01 Less than 8 weeks gestation of pregnancy; Z79.899 Other long term (current) drug therapy; Z88.0 Allergy status to penicillin; Z88.5 Allergy status to narcotic agent; Z91.030 Bee allergy status; Z88.4 Allergy status to anesthetic agent
CPT/HCPCS: 36415; 80053; 82550; 82553; 83735; 84484; 85025; 85610; 85730; 93005; 99285

== ENCOUNTER 2018-07-20 18:42 | Emergency (ER) | payer OTHER ==
[2018-07-20 18:53] VITALS: RESP 18
[2018-07-20] MEDS ORDERED: SODIUM CHLORIDE 0.9% 1,000 ML IV STA ×2 (19:02)
--- NOTE | 2018-07-20 19:13 | ED ---
Chest Pain HPI - General Chief Complaint: Chest Pain Stated Complaint: chest pain Time Seen by Provider: 07/20/18 18:42 Source: patient, RN notes reviewed Mode of arrival: EMS Limitations: no limitations - History of Present Illness Initial Comments: This is a 27-year-old female who is currently 8 weeks who presents with complaints of chest pain started about one hour ago. It was tightness in nature mild to moderate. This occurred after she had nausea vomiting diarrhea was her last evening. She had multiple episodes of the above. In route EMS noted she was quite anxious upon arrival she was much improved. She does states she had a cardiac workup done fairly recently and it was negative for any findings. She states she has had pain along her lower sternum in the past and seems to have some there today. MD Complaint: chest pain - Related Data Home Medications Medication Instructions Recorded Confirmed Pnv,Calcium 72/Iron/Folic Acid 1 tab PO DAILY 07/06/18 07/20/18 [ Plus Tablet] Ranitidine HCl 150 mg PO HS 07/06/18 07/20/18 amLODIPine BESYLATE [Norvasc] 2.5 mg PO HS 07/20/18 07/20/18 Allergies Allergy/AdvReac Type Severity Reaction Status Date / Time amoxicillin Allergy Rash/Hives Verified 07/20/18 19:04 hydrocodone bitartrate Allergy Nausea & Verified 07/20/18 19:04 [From Vicodin] Vomiting Penicillins Allergy Anaphylaxis Verified 07/20/18 19:04 procaine HCl [From Novocain] Allergy Rash/Hives Verified 07/20/18 19:04 venom-honey bee Allergy Anaphylaxis Verified 07/20/18 19:04 [bee venom (honey bee)] Review of Systems ROS Statement: Those systems with pertinent positive or pertinent negative responses have been documented in the HPI. ROS Other: All systems not noted in ROS Statement are negative. EKG Findings - EKG Results: EKG: interpreted by ERMTaylor, WNL, sinus rhythm, normal axis, normal QRS, normal ST/ T, no acute changes (Normal sinus rhythm of 67 IA interval 166 QRS duration 78 daily since QTC 376/397 this is a normal-appearing EKG this is compared with the one submitted by EMS.) Past Medical History Past Medical History: Asthma Additional Past Medical History / Comment(s): ovarian cyst, childhood asthma not on meds now History of Any Multi-Drug Resistant Organisms: None Reported Past Surgical History: Section Additional Past Surgical History / Comment(s): c section x 1 Past Anesthesia/Blood Transfusion Reactions: No Reported Reaction Past Psychological History: No Psychological Hx Reported Smoking Status: Never smoker Past Alcohol Use History: None Reported, Rare Past Drug Use History: None Reported - Past Family History Mother Family Medical History: Asthma, Cancer General Exam - General Exam Comments Initial Comments: This is a well-developed well-nourished awake alert oriented 3 female Limitations: no limitations General appearance: alert, in no apparent distress Head exam: Present: atraumatic, normocephalic, normal inspection Eye exam: Present: normal appearance, PERRL, EOMI. Absent: scleral icterus, conjunctival injection, periorbital swelling ENT exam: Present: normal exam, mucous membranes moist Neck exam: Present: normal inspection. Absent: tenderness, meningismus, lymphadenopathy Respiratory exam: Present: normal lung sounds bilaterally, chest wall tenderness (Reproducible tenderness of the lower xiphoid and costal sternal margin.). Absent: respiratory distress, wheezes, rales, rhonchi, stridor Cardiovascular Exam: Present: regular rate, normal rhythm, normal heart sounds. Absent: systolic murmur, diastolic murmur, rubs, gallop, clicks GI/Abdominal exam: Present: soft, normal bowel sounds. Absent: distended, tenderness, guarding, rebound, rigid Extremities exam: Present: normal inspection, full ROM, normal capillary refill. Absent: tenderness, pedal edema, joint swelling, calf tenderness Back exam: Present: normal inspection Neurological exam: Present: alert, oriented X3, CN II-XII intact Psychiatric exam: Present: normal affect, normal mood Skin exam: Present: warm, dry, intact, normal color. Absent: rash Course Vital Signs 07/20/18 18:50 Temperature 98.5 F Pulse Rate 71 Respiratory 18 Rate Blood Pressure 124/68 O2 Sat by Pulse 99 Oximetry Chest Pain MDM - MDM I did review the imaging and report no acute findings. Patient is feeling improved the presentation is consistent with costochondritis. She'll be discharged from instructions for Tylenol IA for pain follow-up with her doctor return when necessary at this time there is no concerns regarding the she's had no abdominal pain no vaginal discharge or bleeding. Disposition Clinical Impression: Costalchondritis, Chest wall syndrome Disposition: HOME SELF-CARE Condition: Good Instructions: Costochondritis (ED) Additional Instructions: Tylenol when necessary for pain Is patient prescribed a controlled substance at d/c from ED?: No Referrals: Alexander Sahni MD [Primary Care Provider] - 1-2 days
[2018-07-20 19:50] LABS: Basophils % (A) 0 %; Eosinophils # (A) 0.2 k/uL (0-0.7); Eosinophils % (A) 2 %; HCT 35.9 % (34.0-46.0); HGB 11.7 gm/dL (11.4-16.0); Lymphocytes # (A) 1.6 k/uL (1.0-4.8); Lymphocytes % (A) 18 %; MCH 26.5 pg (25.0-35.0); MCHC 32.6 g/dL (31.0-37.0); MCV 81.1 fL (80.0-100.0); Monocytes # (A) 0.4 k/uL (0-1.0); Monocytes % (A) 4 %; Neutrophils # (A) 6.5 k/uL (1.3-7.7); Neutrophils % (A) 74 %; Platelet Count 318 k/uL (150-450); RBC 4.43 m/uL (3.80-5.40); RDW 13.5 % (11.5-15.5); WBC 8.8 k/uL (3.8-10.6)
[2018-07-20 20:01] LABS: ALT 12 U/L (9-52); AST 17 U/L (14-36); Albumin 3.4 g/dL (3.5-5.0); Alkaline Phosphatase 39 U/L (38-126); Anion Gap 6 mmol/L; Blood Urea Nitrogen 7 mg/dL (7-17); Calcium 8.8 mg/dL (8.4-10.2); Carbon Dioxide 23 mmol/L (22-30); Chloride 108 mmol/L (98-107); Glucose 86 mg/dL (74-99); Magnesium 1.9 mg/dL (1.6-2.3); Potassium 3.9 mmol/L (3.5-5.1); Sodium 137 mmol/L (137-145); Total Bilirubin 0.4 mg/dL (0.2-1.3); Total Protein 6.2 g/dL (6.3-8.2)
[2018-07-20 20:03] LABS: INR 1.1 (<1.2); Partial Thromboplastin Time 24.8 sec (22.0-30.0); Prothrombin Time 10.5 sec (9.0-12.0)
[2018-07-20 20:04] LABS: Creatine Kinase 34 U/L (30-135)
[2018-07-20 20:16] LABS: Creatine Kinase MB <0.2 ng/mL (0.0-2.4); Troponin I <0.012 ng/mL (0.000-0.034)
--- NOTE | 2018-07-20 20:21 | XR ---
EXAMINATION TYPE: XR chest 2V DATE OF EXAM: 07/20/2018 COMPARISON: NONE HISTORY: Chest pain TECHNIQUE: Frontal and lateral views of the chest are obtained. FINDINGS: Heart and mediastinum are normal. Lungs are clear. Diaphragm is normal. Bony thorax appear s normal. IMPRESSION: Normal chest. No change.
[2018-07-20 20:37] VITALS: BP 115/59; PULSE 75; TEMP 99.9
== END 2018-07-20 20:42 | disposition home or self-care (01) ==
LOC: EC 18:42
DX: O99.511 Diseases of the respiratory system complicating pregnancy, first trimester (principal); M94.0 Chondrocostal junction syndrome [Tietze]; Z3A.08 8 weeks gestation of pregnancy; Z88.0 Allergy status to penicillin; Z88.4 Allergy status to anesthetic agent; Z88.5 Allergy status to narcotic agent; Z91.030 Bee allergy status; Z79.899 Other long term (current) drug therapy
CPT/HCPCS: 36415; 71046; 80053; 82550; 82553; 83735; 83880; 84484; 85025; 85610; 85730; 93005; 96360; 99285

== ENCOUNTER 2018-08-05 18:14 | Emergency (ER) | payer OTHER ==
[2018-08-05] MEDS ORDERED: SODIUM CHLORIDE 0.9% 1,000 ML IV ONE (19:22)
--- NOTE | 2018-08-05 19:29 | ED ---
General Adult HPI - General Chief complaint: Vaginal Bleeding Stated complaint: Vaginal Bleeding-11 wks Time Seen by Provider: 08/05/18 19:18 Source: patient Mode of arrival: ambulatory Limitations: no limitations - History of Present Illness Initial comments: 27-year-old female patient presents to the emergency department today with complaints of vaginal bleeding. Patient reports she is approximately 11 weeks . She is , patient of Dr. Noriega. Patient states that she has had a cold for the last couple of days. States she was resting in bed around 2 PM this afternoon when her toddler jumped on her abdomen. States that after this she started having suprapubic cramping and low back pain. Patient states that she is having bright red vaginal bleeding. Denies passage of clots. She denies any hematuria, dysuria, urinary frequency, urinary urgency. States that she has established care but has not yet had an ultrasound establishing IUP. She denies any other injuries from the episode. Patient denies any recent rash, fever, chills, shortness breath, chest pain, nausea, vomiting, diarrhea, constipation, numbness, tingling, dizziness, weakness, headache, visual changes, or any other complaints. - Related Data Home Medications Medication Instructions Recorded Confirmed Pnv,Calcium 72/Iron/Folic Acid 1 tab PO DAILY 07/06/18 08/05/18 [ Plus Tablet] Acetaminophen Tab [Tylenol Tab] 650 mg PO Q4H PRN 08/05/18 08/05/18 Allergies Allergy/AdvReac Type Severity Reaction Status Date / Time amoxicillin Allergy Rash/Hives Verified 08/05/18 19:48 hydrocodone bitartrate Allergy Nausea & Verified 08/05/18 19:48 [From Vicodin] Vomiting Penicillins Allergy Anaphylaxis Verified 08/05/18 19:48 procaine HCl [From Novocain] Allergy Rash/Hives Verified 08/05/18 19:48 venom-honey bee Allergy Anaphylaxis Verified 08/05/18 19:48 [bee venom (honey bee)] Review of Systems ROS Statement: Those systems with pertinent positive or pertinent negative responses have been documented in the HPI. ROS Other: All systems not noted in ROS Statement are negative. Past Medical History Past Medical History: Asthma Additional Past Medical History / Comment(s): ovarian cyst, childhood asthma not on meds now History of Any Multi-Drug Resistant Organisms: None Reported Past Surgical History: Section Additional Past Surgical History / Comment(s): c section x 1 Past Anesthesia/Blood Transfusion Reactions: No Reported Reaction Past Psychological History: No Psychological Hx Reported Smoking Status: Never smoker Past Alcohol Use History: None Reported, Rare Past Drug Use History: None Reported - Past Family History Mother Family Medical History: Asthma, Cancer General Exam Limitations: no limitations General appearance: alert, in no apparent distress, other (This is a well- developed, well-nourished adult female patient in no acute distress. Vital signs upon presentation are temperature 99.5F, pulse 79, respirations 18, blood pressure 115/74, pulse ox 99% on room air.) Eye exam: Present: normal appearance, PERRL, EOMI. Absent: scleral icterus, conjunctival injection, periorbital swelling ENT exam: Present: normal exam, normal oropharynx, mucous membranes moist Respiratory exam: Present: normal lung sounds bilaterally. Absent: respiratory distress, wheezes, rales, rhonchi, stridor Cardiovascular Exam: Present: regular rate, normal rhythm, normal heart sounds. Absent: systolic murmur, diastolic murmur, rubs, gallop, clicks GI/Abdominal exam: Present: soft, tenderness (Suprapubic tenderness), normal bowel sounds. Absent: distended, guarding, rebound, rigid Back exam: Present: normal inspection. Absent: CVA tenderness (R), CVA tenderness (L) Neurological exam: Present: alert, oriented X3, CN II-XII intact Psychiatric exam: Present: normal affect, normal mood Skin exam: Present: warm, dry, intact, normal color. Absent: rash Course Vital Signs 08/05/18 18:20 Temperature 99.5 F Pulse Rate 79 Respiratory 18 Rate Blood Pressure 115/74 O2 Sat by Pulse 99 Oximetry Medical Decision Making - Medical Decision Making 27-year-old female patient presented to the emergency department today for evaluation of vaginal bleeding, suprapubic cramping, and low back pain. Physical examination did reveal some mild tenderness over the suprapubic region. Labs reviewed and did reveal an hCG level of 33,000. Transvaginal ultrasound was obtained and report was reviewed, this did show intrauterine demise at 7 weeks 3 days. Pelvic examination was performed by Bernadine Duff PA-c, she reported no vaginal bleeding at this time. Cervical os is closed. There was presence of large amount of vaginal discharge. Discuss findings and results with the patient. With onset of cramping and bleeding is felt that she will be possibly pass intrauterine products of conception spontaneously. She is instructed to monitor this. She is instructed to follow- up with her COMMUNICATIONS SUPERINTENDENT Dr. Noriega for recheck as soon as possible. Return parameters were discussed in detail. She verbalizes understanding and agrees with this plan. - Lab Data Result diagrams: 08/05/18 19:33 08/05/18 19:33 Lab Results 08/05/18 08/05/18 08/05/18 Range/Units 19:33 19:33 19:33 WBC 8.2 (3.8-10.6) k/uL RBC 4.83 (3.80-5.40) m/uL Hgb 12.7 (11.4-16.0) gm/dL Hct 38.6 (34.0-46.0) % MCV 79.9 L (80.0-100.0) fL MCH 26.2 (25.0-35.0) pg MCHC 32.8 (31.0-37.0) g/dL RDW 13.4 (11.5-15.5) % Plt Count 310 (150-450) k/uL Neutrophils % 75 % Lymphocytes % 14 % Monocytes % 7 % Eosinophils % 3 % Basophils % 0 % Neutrophils # 6.2 (1.3-7.7) k/uL Lymphocytes # 1.1 (1.0-4.8) k/uL Monocytes # 0.6 (0-1.0) k/uL Eosinophils # 0.2 (0-0.7) k/uL Basophils # 0.0 (0-0.2) k/uL PT (9.0-12.0) sec INR (<1.2) APTT (22.0-30.0) sec Sodium 137 (137-145) mmol/L Potassium 3.8 (3.5-5.1) mmol/L Chloride 105 (98-107) mmol/L Carbon Dioxide 21 L (22-30) mmol/L Anion Gap 11 mmol/L BUN 6 L (7-17) mg/dL Creatinine 0.81 (0.52-1.04) mg/dL Est GFR (CKD-EPI)AfAm >90 (>60 ml/min/1.73 sqM) Est GFR (CKD-EPI)NonAf >90 (>60 ml/min/1.73 sqM) Glucose 87 (74-99) mg/dL Calcium 9.0 (8.4-10.2) mg/dL Total Bilirubin 0.4 (0.2-1.3) mg/dL AST 15 (14-36) U/L ALT 18 (9-52) U/L Alkaline Phosphatase 48 (38-126) U/L Total Protein 6.9 (6.3-8.2) g/dL Albumin 3.8 (3.5-5.0) g/dL HCG, Quant 05344.4 mIU/mL Trichomonas Ag (Rapid) (Negative) Blood Type AB Positive Blood Type Recheck No 08/05/18 08/05/18 Range/Units 19:33 20:31 WBC (3.8-10.6) k/uL RBC (3.80-5.40) m/uL Hgb (11.4-16.0) gm/dL Hct (34.0-46.0) % MCV (80.0-100.0) fL MCH (25.0-35.0) pg MCHC (31.0-37.0) g/dL RDW (11.5-15.5) % Plt Count (150-450) k/uL Neutrophils % % Lymphocytes % % Monocytes % % Eosinophils % % Basophils % % Neutrophils # (1.3-7.7) k/uL Lymphocytes # (1.0-4.8) k/uL Monocytes # (0-1.0) k/uL Eosinophils # (0-0.7) k/uL Basophils # (0-0.2) k/uL PT 10.0 (9.0-12.0) sec INR 1.0 (<1.2) APTT 24.0 (22.0-30.0) sec Sodium (137-145) mmol/L Potassium (3.5-5.1) mmol/L Chloride (98-107) mmol/L Carbon Dioxide (22-30) mmol/L Anion Gap mmol/L BUN (7-17) mg/dL Creatinine (0.52-1.04) mg/dL Est GFR (CKD-EPI)AfAm (>60 ml/min/1.73 sqM) Est GFR (CKD-EPI)NonAf (>60 ml/min/1.73 sqM) Glucose (74-99) mg/dL Calcium (8.4-10.2) mg/dL Total Bilirubin (0.2-1.3) mg/dL AST (14-36) U/L ALT (9-52) U/L Alkaline Phosphatase (38-126) U/L Total Protein (6.3-8.2) g/dL Albumin (3.5-5.0) g/dL HCG, Quant mIU/mL Trichomonas Ag (Rapid) Negative (Negative) Blood Type Blood Type Recheck - Radiology Data Radiology results: report reviewed Transvaginal ultrasound was obtained. Report was reviewed in its entirety. Impression by Dr. Rudd shows intrauterine demise at approximately 7 weeks 3 days gestation. No heart tones are seen. No yolk sac. Disposition Clinical Impression: Incomplete Disposition: HOME SELF-CARE Condition: Good Instructions: Miscarriage (ED) Additional Instructions: Follow-up with your COMMUNICATIONS SUPERINTENDENT for recheck as soon as possible. Return here immediately if he develops any fever, worsening abdominal pain, heavy vaginal bleeding, or any other concerns. Is patient prescribed a controlled substance at d/c from ED?: No Referrals: Alexander Sahni MD [Primary Care Provider] - 1-2 days Time of Disposition: 21:21
[2018-08-05 20:01] LABS: Basophils % (A) 0 %; Eosinophils # (A) 0.2 k/uL (0-0.7); Eosinophils % (A) 3 %; HCT 38.6 % (34.0-46.0); HGB 12.7 gm/dL (11.4-16.0); Lymphocytes # (A) 1.1 k/uL (1.0-4.8); Lymphocytes % (A) 14 %; MCH 26.2 pg (25.0-35.0); MCHC 32.8 g/dL (31.0-37.0); MCV 79.9 fL (80.0-100.0); Mean Platelet Volume 6.1; Monocytes # (A) 0.6 k/uL (0-1.0); Monocytes % (A) 7 %; Neutrophils # (A) 6.2 k/uL (1.3-7.7); Neutrophils % (A) 75 %; Platelet Count 310 k/uL (150-450); RBC 4.83 m/uL (3.80-5.40); RDW 13.4 % (11.5-15.5); WBC 8.2 k/uL (3.8-10.6)
[2018-08-05 20:13] LABS: ALT 18 U/L (9-52); AST 15 U/L (14-36); Albumin 3.8 g/dL (3.5-5.0); Alkaline Phosphatase 48 U/L (38-126); Anion Gap 11 mmol/L; Blood Urea Nitrogen 6 mg/dL (7-17); Carbon Dioxide 21 mmol/L (22-30); Chloride 105 mmol/L (98-107); Glucose 87 mg/dL (74-99); Potassium 3.8 mmol/L (3.5-5.1); Sodium 137 mmol/L (137-145); Total Bilirubin 0.4 mg/dL (0.2-1.3); Total Protein 6.9 g/dL (6.3-8.2)
[2018-08-05 20:56] LABS: HCG,Quantitative Serum 33665.4 mIU/mL
--- NOTE | 2018-08-05 21:01 | US ---
EXAMINATION TYPE: Transabdominal DATE OF EXAM: 01/05/18 COMPARISON: NONE CLINICAL HISTORY: pain. Spotting EXAM PERFORMED: Transabdominal (TA) EXAM MEASUREMENTS: GESTATIONAL AGE / DATING Physician Established: Not yet established ( Dates by LMP: (10 weeks/5 days) EDC: 02/26/2019 Dates by First Scan: No previous this is first scan Dates by Current Scan for: (7 weeks/3 days MATERNAL ANATOMY Uterus: 9.5 x 6.9 x 7.4 cm Right Ovary: 3.4 x 2.9 x 3.0 cm Left Ovary: 3.0 x 1.9 x 2.2 cm Post CDS / Adnexa: wnl Presence of free fluid: no Presence of corpus luteal cyst: yes Presence of subchorionic bleed: no GESTATION / SURVEY CRL: (7 weeks/3 days) Yolk Sac (normal less than 6mm): Not seen IUP: Demise Beta HcG (if available): Not available at this time No heart tones seen. IMPRESSION: There is intrauterine demise at approximately 7 weeks 3 days gestation.
[2018-08-05] MEDS ORDERED: ACET/COD 300 MG/30 MG STARTER PACK 6 TAB BTL PO STA (21:18)
[2018-08-05 22:29] VITALS: BP 115/69; PULSE 72; RESP 15; TEMP 99.1
[2018-08-06 13:53] LABS: C. trachomatis,PCR Negative (Neg,Equiv); Chlamydia trachomatis Source Vagina
[2018-08-06 13:58] LABS: N. gonorrhoeae,PCR Negative (Neg,Equiv); Neisseria Source Vagina
== END 2018-08-05 22:31 | disposition home or self-care (01) ==
LOC: EC 18:14
DX: O03.4 Incomplete spontaneous abortion without complication (principal); Z87.42 Personal history of other diseases of the female genital tract; Z88.0 Allergy status to penicillin; Z88.4 Allergy status to anesthetic agent; Z88.5 Allergy status to narcotic agent; Z91.030 Bee allergy status
CPT/HCPCS: 36415; 76801; 80053; 84702; 85025; 85610; 85730; 86900; 86901; 87070; 87205; 87491; 87591; 87808; 96360; 96361; 99284

== ENCOUNTER 2019-01-10 13:24 | Emergency (ER) | payer OTHER ==
[2019-01-10] MEDS ORDERED: SODIUM CHLORIDE 0.9% 1,000 ML IV ONE (15:01)
[2019-01-10 15:35] LABS: Basophils # (A) 0.1 k/uL (0-0.2); Basophils % (A) 1 %; Eosinophils # (A) 0.3 k/uL (0-0.7); Eosinophils % (A) 3 %; HCT 37.5 % (34.0-46.0); HGB 12.5 gm/dL (11.4-16.0); Lymphocytes # (A) 1.9 k/uL (1.0-4.8); Lymphocytes % (A) 19 %; MCHC 33.3 g/dL (31.0-37.0); MCV 78.1 fL (80.0-100.0); Mean Platelet Volume 5.9; Monocytes # (A) 0.4 k/uL (0-1.0); Monocytes % (A) 4 %; Neutrophils # (A) 7.4 k/uL (1.3-7.7); Neutrophils % (A) 72 %; Platelet Count 349 k/uL (150-450); RDW 13.8 % (11.5-15.5); WBC 10.3 k/uL (3.8-10.6)
[2019-01-10 15:43] LABS: Calcium 9.4 mg/dL (8.4-10.2); Potassium 3.9 mmol/L (3.5-5.1); Total Bilirubin 0.4 mg/dL (0.2-1.3); Total Protein 6.7 g/dL (6.3-8.2)
--- NOTE | 2019-01-10 16:04 | ED ---
Female Urogenital HPI - General Chief complaint: Vaginal Bleeding Stated complaint: 9wks preg, spotting Time Seen by Provider: 01/10/19 15:01 Source: patient Mode of arrival: ambulatory Limitations: no limitations - History of Present Illness Initial comments: A3 female with no past medical history presenting today for chief complaint of vaginal bleeding. Patient states she believes she is 8 weeks . Last menstrual period last week in October. Patient's history of positive test 2 weeks prior. Patient states she's had multiple but he's abortions within the last 6 months. Patient states she is the middle of transitioning OBGYN care and spoke with new OBGYN Dr. Olson office prior to presenting. Patient states the vaginal bleeding is heavy. She denies any pelvic cramping or discomfort. Patient states it is painless bleeding. Patient was considered of another assessment is presented for evaluation. Remaining review of systems negative, Patient denies any recent fever, chills, shortness of breath, chest pain, back pain, abdominal pain, nausea or vomiting, numbness or tingling, dysuria or hematuria, constipation or diarrhea, headaches or visual changes, or any other complaints. - Related Data Home Medications Medication Instructions Recorded Confirmed Pnv,Calcium 72/Iron/Folic Acid 1 tab PO DAILY 07/06/18 01/10/19 [ Plus Tablet] Allergies Allergy/AdvReac Type Severity Reaction Status Date / Time amoxicillin Allergy Rash/Hives Verified 01/10/19 15:07 hydrocodone bitartrate Allergy Nausea & Verified 01/10/19 15:07 [From Vicodin] Vomiting Penicillins Allergy Anaphylaxis Verified 01/10/19 15:07 procaine HCl [From Novocain] Allergy Rash/Hives Verified 01/10/19 15:07 venom-honey bee Allergy Anaphylaxis Verified 01/10/19 15:07 [bee venom (honey bee)] Review of Systems ROS Statement: Those systems with pertinent positive or pertinent negative responses have been documented in the HPI. ROS Other: All systems not noted in ROS Statement are negative. Past Medical History Past Medical History: Asthma Additional Past Medical History / Comment(s): ovarian cyst, childhood asthma not on meds now History of Any Multi-Drug Resistant Organisms: None Reported Past Surgical History: Section Additional Past Surgical History / Comment(s): c section x 1 Past Anesthesia/Blood Transfusion Reactions: No Reported Reaction Past Psychological History: No Psychological Hx Reported Smoking Status: Never smoker Past Alcohol Use History: None Reported, Rare Past Drug Use History: None Reported - Past Family History Mother Family Medical History: Asthma, Cancer General Exam - General Exam Comments Initial Comments: General: The patient is awake and alert, in no distress, and does not appear acutely ill. Eye: Pupils are equal, round and reactive to light, extra-ocular movements are intact. No nystagmus. There is normal conjunctiva bilaterally. No signs of icterus. Ears, nose, mouth and throat: There are moist mucous membranes and no oral lesions. Neck: The neck is supple, there is no tenderness or JVD. Cardiovascular: There is a regular rate and rhythm. No murmur, rub or gallop is appreciated. Respiratory: Lungs are clear to auscultation, respirations are non-labored, breath sounds are equal. No wheezes, stridor, rales, or rhonchi. Gastrointestinal: Soft, non-distended, non-tender abdomen without masses or organomegaly noted. There is no rebound or guarding present. No CVA tenderness. Bowel sounds are unremarkable. Musculoskeletal: Normal ROM, no tenderness. Strength 5/5. Sensation intact. Pulses equal bilaterally 2+. Neurological: A&O x 3. CN II-XII intact, There are no obvious motor or sensory deficits. Coordination appears grossly intact. Speech is normal. Skin: Skin is warm and dry and no rashes or lesions are noted. Psychiatric: Cooperative, appropriate mood & affect, normal judgment. Limitations: no limitations Course Vital Signs 01/10/19 01/10/19 14:29 16:47 Temperature 98.4 F 99.2 F Pulse Rate 68 67 Respiratory 16 18 Rate Blood Pressure 126/72 118/55 O2 Sat by Pulse 99 99 Oximetry Medical Decision Making - Medical Decision Making 28-year-old male presents with vaginal bleeding. Abdominal exam benign. Patient denies pain. Ultrasound revealed a intrauterine gestational and yolk sac with no pole, approximately 5 weeks in size. This could correlate with possible early or inevitable . HCG ~90807. Pt refused pelvic exam. HgB stable AB+ no rhogam indicated. At this time I discussed different diagnosis of possibilty of ectopic, spontaneous or early . Patient verbalized understanding. I instructed patient to repeat hCG in 2 days. Patient is provided prescription. Patient was also recommended to follow-up with Dr. Murillo in the next week for repeat ultrasound as well as serial hCG measurements. She is agreeable to plan of care as well as discharge. Pt appears reliable. I also instructed patient to return for any abdominal pain or heavy vaginal bleeding. Fever chills. Patient verbalized understanding. I discussed the case at time provider Dr. Barrett who is agreeable with patient plan of care as well as discharge. All patient's questions were answered as viability. Patient is discharged appearing well - Lab Data Result diagrams: 01/10/19 15:20 01/10/19 15:20 Lab Results 01/10/19 01/10/19 01/10/19 Range/Units 15:20 15:20 15:20 WBC 10.3 (3.8-10.6) k/uL RBC 4.80 (3.80-5.40) m/uL Hgb 12.5 (11.4-16.0) gm/dL Hct 37.5 (34.0-46.0) % MCV 78.1 L (80.0-100.0) fL MCH 26.0 (25.0-35.0) pg MCHC 33.3 (31.0-37.0) g/dL RDW 13.8 (11.5-15.5) % Plt Count 349 (150-450) k/uL Neutrophils % 72 % Lymphocytes % 19 % Monocytes % 4 % Eosinophils % 3 % Basophils % 1 % Neutrophils # 7.4 (1.3-7.7) k/uL Lymphocytes # 1.9 (1.0-4.8) k/uL Monocytes # 0.4 (0-1.0) k/uL Eosinophils # 0.3 (0-0.7) k/uL Basophils # 0.1 (0-0.2) k/uL Sodium 139 (137-145) mmol/L Potassium 3.9 (3.5-5.1) mmol/L Chloride 106 (98-107) mmol/L Carbon Dioxide 25 (22-30) mmol/L Anion Gap 8 mmol/L BUN 5 L (7-17) mg/dL Creatinine 1.03 (0.52-1.04) mg/dL Est GFR (CKD-EPI)AfAm 84 (>60 ml/min/1.73 sqM) Est GFR (CKD-EPI)NonAf 73 (>60 ml/min/1.73 sqM) Glucose 77 (74-99) mg/dL Calcium 9.4 (8.4-10.2) mg/dL Total Bilirubin 0.4 (0.2-1.3) mg/dL AST 14 (14-36) U/L ALT 18 (9-52) U/L Alkaline Phosphatase 52 (38-126) U/L Total Protein 6.7 (6.3-8.2) g/dL Albumin 4.0 (3.5-5.0) g/dL HCG, Quant 62988.2 mIU/mL Blood Type AB Positive Blood Type Recheck [facility] ONLY Disposition Clinical Impression: Threatened , Vaginal bleeding before 22 weeks gestation Disposition: HOME SELF-CARE Condition: Good Instructions (If sedation given, give patient instructions): Threatened Miscarriage (ED) Additional Instructions: Please use medication as discussed. Please follow-up with Dr Olson. Please repeat HCG in 2 days, repeat US within 1 week. Please return to emergency room if the symptoms increase or worsen or for any other concerns. Is patient prescribed a controlled substance at d/c from ED?: No Referrals: Alexander Sahni MD [Primary Care Provider] - 1-2 days Mk Olson DO [Doctor of Osteopathic Medicine] - 1-2 days Time of Disposition: 16:33
--- NOTE | 2019-01-10 16:07 | US ---
EXAMINATION TYPE: Transabdominal DATE OF EXAM: 01/10/2019 3:53 PM COMPARISON: NONE CLINICAL HISTORY: pain. Spotting for 2 days, 10/20 EXAM PERFORMED: Transabdominal (TA) EXAM MEASUREMENTS: GESTATIONAL AGE / DATING Physician Established: not yet established Dates by LMP: (9 weeks/5 days) EDC: 08/10/19 Dates by First Scan: No previous this is first scan Dates by Current Scan for: (5 weeks/4 days) - MSD MATERNAL ANATOMY Uterus: 10.6 x 5.1 x 6.7cm Right Ovary: 3.6 x 2.4 x 2.3cm Left Ovary: 2.6 x 1.1 x 1.4cm Post CDS / Adnexa: free fluid adjacent to right ovary and posterior cul-de-sac Presence of free fluid: yes Presence of corpus luteal cyst: yes, right ovary = 2.1 x 2.1 x 1.7cm GESTATION / SURVEY MSD: 1.3cm (5 weeks/4 days) Yolk Sac (normal less than 6mm): 0.3cm No evidence of pole at this time Date of LMP: 11/03/18 Beta HcG (if available): Not available at this time Gestational sac with yolk sac within uterus. Unable to identify pole at this time. Corpus luteu m right ovary. Free fluid posterior cul-de-sac and adjacent to right ovary IMPRESSION: 1. Findings may reflect normal early IUP, missed spontaneous as well as ectopic ca n't exclude. Correlate clinically with serial beta hCG and/or ultrasound.
[2019-01-10 16:25] LABS: HCG,Quantitative Serum 18961.2 mIU/mL
[2019-01-10 16:48] VITALS: BP 118/55; PULSE 67; RESP 18; TEMP 99.2
== END 2019-01-10 16:47 | disposition home or self-care (01) ==
LOC: EC 13:24
DX: O20.0 Threatened abortion (principal); Z3A.01 Less than 8 weeks gestation of pregnancy; Z88.0 Allergy status to penicillin; Z88.5 Allergy status to narcotic agent; Z88.6 Allergy status to analgesic agent; Z88.4 Allergy status to anesthetic agent; Z91.030 Bee allergy status
CPT/HCPCS: 36415; 76801; 80053; 84702; 85025; 86900; 86901; 96360; 99284

== ENCOUNTER → 2019-01-12 | Outpatient (CLI) | payer OTHER | END | disposition home or self-care (01) | LOC: LABWHC1 12:59 | PROVIDERS: ATTEND Physician Assistant Medical | DX: O20.0 Threatened abortion (principal); Z3A.00 Weeks of gestation of pregnancy not specified | CPT/HCPCS: 36415; 84702 ==

== ENCOUNTER 2019-03-14 18:03 | Emergency (ER) | payer OTHER ==
[2019-03-14 18:20] VITALS: PULSE 74; RESP 18
[2019-03-14 19:07] LABS: Appearance,Urine Clear (Clear); Basophils % (A) 0 %; Bilirubin,Urine Negative (Negative); Blood,Urine Negative (Negative); Color,Urine Yellow; Eosinophils # (A) 0.3 k/uL (0-0.7); Eosinophils % (A) 3 %; Glucose,Urine (UA) Negative (Negative); HCT 38.2 % (34.0-46.0); HGB 12.5 gm/dL (11.4-16.0); Ketones,Urine Negative (Negative); Leukocyte Esterase,Urine Negative (Negative); Lymphocytes # (A) 1.7 k/uL (1.0-4.8); Lymphocytes % (A) 15 %; MCH 26.2 pg (25.0-35.0); MCHC 32.7 g/dL (31.0-37.0); MCV 80.2 fL (80.0-100.0); Monocytes # (A) 0.3 k/uL (0-1.0); Monocytes % (A) 3 %; Neutrophils # (A) 9.1 k/uL (1.3-7.7); Neutrophils % (A) 79 %; Nitrite,Urine Negative (Negative); PH, Urine 7.5 (5.0-8.0); Platelet Count 363 k/uL (150-450); Protein,Urine Negative (Negative); RBC 4.76 m/uL (3.80-5.40); RDW 13.5 % (11.5-15.5); Specific Gravity,Urine 1.015 (1.001-1.035); Urobilinogen,Urine <2.0 mg/dL (<2.0); WBC 11.6 k/uL (3.8-10.6)
[2019-03-14 19:14] LABS: ALT 23 U/L (9-52); AST 17 U/L (14-36); African American GFR (CKD) >90 (>60 ml/min/1.73 sqM); Albumin 3.7 g/dL (3.5-5.0); Alkaline Phosphatase 44 U/L (38-126); Anion Gap 8 mmol/L; Blood Urea Nitrogen 5 mg/dL (7-17); Calcium 8.9 mg/dL (8.4-10.2); Carbon Dioxide 22 mmol/L (22-30); Chloride 108 mmol/L (98-107); Glucose 84 mg/dL (74-99); Potassium 3.8 mmol/L (3.5-5.1); Sodium 138 mmol/L (137-145); Total Bilirubin 0.2 mg/dL (0.2-1.3); Total Protein 6.5 g/dL (6.3-8.2)
--- NOTE | 2019-03-14 21:41 | ED ---
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 Patient is currently 15 weeks gestation, she just had blood work to confirm the gene mutation last week she is in a began progesterone injections next week per her OBs recommendation. She reports intermittently throughout the day today she's had some lower a bdominal cramping and became very anxious that she may be miscarrying. She's not had any vaginal bleeding or discharge. She has no lower urinary tract symptoms. She has no nausea vomiting chest pain or palpitations. - Related Data Home Medications Medication Instructions Recorded Confirmed Pnv,Calcium 72/Iron/Folic Acid 1 tab PO DAILY 07/06/18 03/14/19 [ Plus Tablet] Folic Acid 1 mg PO BID 03/14/19 03/14/19 Allergies Allergy/AdvReac Type Severity Reaction Status Date / Time amoxicillin Allergy Rash/Hives Verified 03/14/19 21:29 hydrocodone bitartrate Allergy Nausea & Verified 03/14/19 21:29 [From Vicodin] Vomiting Penicillins Allergy Anaphylaxis Verified 03/14/19 21:29 procaine HCl [From Novocain] Allergy Rash/Hives Verified 03/14/19 21:29 venom-honey bee Allergy Anaphylaxis Verified 03/14/19 21:29 [bee venom (honey bee)] Review of Systems ROS Statement: Those systems with pertinent positive or pertinent negative responses have been documented in the HPI. ROS Other: All systems not noted in ROS Statement are negative. Past Medical History Past Medical History: Asthma Additional Past Medical History / Comment(s): ovarian cyst, childhood asthma not on meds now, MTHFR mutation, multiple miscarriages History of Any Multi-Drug Resistant Organisms: None Reported Past Surgical History: Section, Cholecystectomy Additional Past Surgical History / Comment(s): c section x 1 Past Anesthesia/Blood Transfusion Reactions: No Reported Reaction Past Psychological History: No Psychological Hx Reported Smoking Status: Never smoker Past Alcohol Use History: None Reported, Rare Past Drug Use History: None Reported - Past Family History Mother Family Medical History: Asthma, Cancer General Exam - General Exam Comments Initial Comments: Physical Exam GENERAL: Patient is well-developed and well-nourished. Patient is nontoxic and well-hydrated and is in no distress. HENT: Normocephalic, Atraumatic. EYES: PERRL, EOMI PULMONARY: Unlabored respirations. No audible rales rhonchi or wheezing was noted. CARDIOVASCULAR: There is a regular rate and rhythm without any murmurs gallops or rubs. ABDOMEN: Soft and nontender with normal bowel sounds. Palpable uterus below the umbilicus SKIN: Skin is clear with no lesions or rashes and otherwise unremarkable. : Deferred NEUROLOGIC: Patient is alert and oriented x3. Moving all extremities spontaneously MUSCULOSKELETAL: Normal extremities with adequate strength and full range of motion. No lower extremity swelling or edema. No calf tenderness. PSYCHIATRIC: Normal psychiatric evaluation Limitations: no limitations Course Vital Signs 03/14/19 03/14/19 18:14 22:01 Temperature 99.6 F 97.7 F Pulse Rate 74 74 Respiratory 18 18 Rate Blood Pressure 130/70 129/79 O2 Sat by Pulse 98 97 Oximetry Medical Decision Making - Medical Decision Making The patient was seen and evaluated history is obtained from patient Patient is very anxious that she could be having a recurrent miscarriage due to history of such Labs unremarkable no sign urinalysis with no signs of infection Bedside ultrasound reveals a very active fetus with a heart rate of 150s. Mother was able to view the fetus listen to the heart rate and take a video such. She reported feeling much much better after this is comfortable with the plan for discharge home. She is scheduled to see her OB again next week. - Lab Data Result diagrams: 03/14/19 18:53 03/14/19 18:53 Lab Results 03/14/19 03/14/19 03/14/19 Range/Units 18:53 18:53 18:53 WBC 11.6 H (3.8-10.6) k/uL RBC 4.76 (3.80-5.40) m/uL Hgb 12.5 (11.4-16.0) gm/dL Hct 38.2 (34.0-46.0) % MCV 80.2 (80.0-100.0) fL MCH 26.2 (25.0-35.0) pg MCHC 32.7 (31.0-37.0) g/dL RDW 13.5 (11.5-15.5) % Plt Count 363 (150-450) k/uL Neutrophils % 79 % Lymphocytes % 15 % Monocytes % 3 % Eosinophils % 3 % Basophils % 0 % Neutrophils # 9.1 H (1.3-7.7) k/uL Lymphocytes # 1.7 (1.0-4.8) k/uL Monocytes # 0.3 (0-1.0) k/uL Eosinophils # 0.3 (0-0.7) k/uL Basophils # 0.0 (0-0.2) k/uL Sodium 138 (137-145) mmol/L Potassium 3.8 (3.5-5.1) mmol/L Chloride 108 H (98-107) mmol/L Carbon Dioxide 22 (22-30) mmol/L Anion Gap 8 mmol/L BUN 5 L (7-17) mg/dL Creatinine 0.70 (0.52-1.04) mg/dL Est GFR (CKD-EPI)AfAm >90 (>60 ml/min/1.73 sqM) Est GFR (CKD-EPI)NonAf >90 (>60 ml/min/1.73 sqM) Glucose 84 (74-99) mg/dL Calcium 8.9 (8.4-10.2) mg/dL Total Bilirubin 0.2 (0.2-1.3) mg/dL AST 17 (14-36) U/L ALT 23 (9-52) U/L Alkaline Phosphatase 44 (38-126) U/L Total Protein 6.5 (6.3-8.2) g/dL Albumin 3.7 (3.5-5.0) g/dL HCG, Quant mIU/mL Urine Color Yellow Urine Appearance Clear (Clear) Urine pH 7.5 (5.0-8.0) Ur Specific [place] 1.015 (1.001-1.035) Urine Protein Negative (Negative) Urine Glucose (UA) Negative (Negative) Urine Ketones Negative (Negative) Urine Blood Negative (Negative) Urine Nitrite Negative (Negative) Urine Bilirubin Negative (Negative) Urine Urobilinogen <2.0 (<2.0) mg/dL Ur Leukocyte Esterase Negative (Negative) 03/14/19 Range/Units 18:53 WBC (3.8-10.6) k/uL RBC (3.80-5.40) m/uL Hgb (11.4-16.0) gm/dL Hct (34.0-46.0) % MCV (80.0-100.0) fL MCH (25.0-35.0) pg MCHC (31.0-37.0) g/dL RDW (11.5-15.5) % Plt Count (150-450) k/uL Neutrophils % % Lymphocytes % % Monocytes % % Eosinophils % % Basophils % % Neutrophils # (1.3-7.7) k/uL Lymphocytes # (1.0-4.8) k/uL Monocytes # (0-1.0) k/uL Eosinophils # (0-0.7) k/uL Basophils # (0-0.2) k/uL Sodium (137-145) mmol/L Potassium (3.5-5.1) mmol/L Chloride (98-107) mmol/L Carbon Dioxide (22-30) mmol/L Anion Gap mmol/L BUN (7-17) mg/dL Creatinine (0.52-1.04) mg/dL Est GFR (CKD-EPI)AfAm (>60 ml/min/1.73 sqM) Est GFR (CKD-EPI)NonAf (>60 ml/min/1.73 sqM) Glucose (74-99) mg/dL Calcium (8.4-10.2) mg/dL Total Bilirubin (0.2-1.3) mg/dL AST (14-36) U/L ALT (9-52) U/L Alkaline Phosphatase (38-126) U/L Total Protein (6.3-8.2) g/dL Albumin (3.5-5.0) g/dL HCG, Quant 01602.3 mIU/mL Urine Color Urine Appearance (Clear) Urine pH (5.0-8.0) Ur Specific [place] (1.001-1.035) Urine Protein (Negative) Urine Glucose (UA) (Negative) Urine Ketones (Negative) Urine Blood (Negative) Urine Nitrite (Negative) Urine Bilirubin (Negative) Urine Urobilinogen (<2.0) mg/dL Ur Leukocyte Esterase (Negative) Disposition Clinical Impression: Pelvic pain affecting Disposition: HOME SELF-CARE Condition: Stable Additional Instructions: Maintain pelvic rest, no intercourse, until you follow up with your OB Is patient prescribed a controlled substance at d/c from ED?: No Referrals: Alexander Sahni MD [Primary Care Provider] - 1-2 days
[2019-03-14 22:02] VITALS: BP 129/79; TEMP 97.7
== END 2019-03-14 22:02 | disposition home or self-care (01) ==
LOC: EC 18:03
DX: O26.892 Other specified pregnancy related conditions, second trimester (principal); R10.2 Pelvic and perineal pain; Z3A.15 15 weeks gestation of pregnancy; Z88.0 Allergy status to penicillin; Z88.5 Allergy status to narcotic agent; Z88.6 Allergy status to analgesic agent; Z88.4 Allergy status to anesthetic agent; Z91.030 Bee allergy status; Z90.49 Acquired absence of other specified parts of digestive tract
CPT/HCPCS: 36415; 80053; 81003; 84702; 85025; 99283

== ENCOUNTER 2019-05-04 22:06 | Observation (INO) | payer OTHER ==
[2019-05-04] MEDS: LACTATED RINGERS 1,000 ML IV SCH (22:57)
--- NOTE | 2019-05-05 01:07 | US ---
EXAM: US After First Trimester, Transabdominal CLINICAL HISTORY: labor. A3. TECHNIQUE: Real-time transabdominal obstetrical ultrasound of the maternal pelvis and a second or third trimester with image documentation. COMPARISON: Pelvic ultrasound from 01-10-19. FINDINGS: Fetus: Single live intrauterine with an estimated gestational age of 22 weeks 3 days per biometric measurements. Heart rate: heart rate is 152. Presentation: presentation is cephalic. Placenta: Grade 0 placenta is located posteriorly. No abruption. Amniotic fluid: AISLINN is 12.9 cm. Anatomy: This exam is not dedicated for anatomical survey. BIOMETRICS BPD: 5.47 cm 22 weeks / 5 days HC: 20.51 cm 22 weeks / 4 days AC: 18.22 cm 23 weeks / 0 days FL: 3.99 cm 22 weeks / 6 days ESTIMATED WEIGHT IN GRAMS: 546.26 grams ESTIMATED WEIGHT IN LBS/OZ: 1 lb. 3 oz. WEIGHT PERCENTAGE BASED ON ESTABLISHED DATES: 38.4% HC/AC: 1.13 Normal FL/AC: 21.87 Normal HEART RATE: 152 bpm RHYTHM: Normal MATERNAL: Uterus: Unremarkable. No myometrial mass. Cervix: Cervix is closed and measures 3.8 cm in length Free fluid: No free fluid. IMPRESSION: Single live intrauterine with an estimated gestational age of 22 weeks 3 days per biometric measurements. Estimated due date is 09/05/19.
[2019-05-05 01:17] LABS: Appearance,Urine Clear (Clear); Bilirubin,Urine Negative (Negative); Blood,Urine Negative (Negative); Color,Urine Light Yellow; Glucose,Urine (UA) Negative (Negative); Ketones,Urine Negative (Negative); Leukocyte Esterase,Urine Negative (Negative); Nitrite,Urine Negative (Negative); PH, Urine 6.5 (5.0-8.0); Protein,Urine Negative (Negative); Specific Gravity,Urine 1.002 (1.001-1.035); Urobilinogen,Urine <2.0 mg/dL (<2.0)
--- NOTE | 2019-05-05 01:21 | P.HPOB ---
History of Present Illness H&P Date: 05/05/19 Chief Complaint: Intrauterine 22 weeks: Contractions Patient is a 28-year-old at 23 weeks gestation who arrives to labor and delivery complaining of contractions over the last few hours. She relates that she had gotten up and use the restroom and when she wiped there was a little bit of pink tinge and shortly thereafter she began having irregular contractions. They began to get stronger and closer together so she came into labor and delivery. She had a lengthy discussion on limitations at 23 weeks gestation on what we can and cannot do with regard to labor this truly is labor. Due to concerns that I had based on her history a ultrasound was ordered and showed a cervical length of 3.82 and a fibronectin was done. heart tones were in the 140s. She was closed and thick from cervical standpoint. She relates that she sees Dr. Noriega at [facility]. She has had multiple visits and multiple ultrasounds all of which have been essentially normal. She was started on progesterone for history of lab or. She is getting her injections weekly. She relates that her last she did have some labor and then ended up with a section due to nonreassuring heart tones based on her description. She denies having intercourse or any other changes today that might have led to her having contractions. An IV was started and she is hydrated well now. Urinalysis is pending. On physical exam vital signs are stable and afebrile. Heart regular, lungs clear, extremities without pain. Abdomen is soft but gravid. Contractions were palpating mild but she is balaji every approximately 3-4 minutes. Assessment intrauterine at 23 weeks. labor-like symptoms. Plan hydration and possible tocolysis with Procardia Past Medical History Past Medical History: Asthma Additional Past Medical History / Comment(s): ovarian cyst, childhood asthma not on meds now, MTHFR mutation, multiple miscarriages History of Any Multi-Drug Resistant Organisms: None Reported Past Surgical History: Section, Cholecystectomy Additional Past Surgical History / Comment(s): c section x 1 Past Anesthesia/Blood Transfusion Reactions: No Reported Reaction Smoking Status: Never smoker - Past Family History Mother Family Medical History: Asthma, Cancer Medications and Allergies Home Medications Medication Instructions Recorded Confirmed Type Pnv,Calcium 72/Iron/Folic Acid 1 tab PO DAILY 07/06/18 05/04/19 History [ Plus Tablet] RX: Folic Acid 1 mg PO BID 03/14/19 05/04/19 History Allergies Allergy/AdvReac Type Severity Reaction Status Date / Time amoxicillin Allergy Rash/Hives Verified 05/04/19 22:24 hydrocodone bitartrate Allergy Nausea & Verified 05/04/19 22:24 [From Vicodin] Vomiting Penicillins Allergy Anaphylaxis Verified 05/04/19 22:24 procaine HCl [From Novocain] Allergy Rash/Hives Verified 05/04/19 22:24 venom-honey bee Allergy Anaphylaxis Verified 05/04/19 22:24 [bee venom (honey bee)] Exam Osteopathic Statement: *. No significant issues noted on an osteopathic structural exam other than those noted in the History and Physical/Consult. Vital Signs Temp Pulse Resp BP Pulse Ox 05/04/19 23:00 97.4 F L 69 18 117/65 98 Intake and Output 05/04/19 05/04/19 05/05/19 14:59 22:59 06:59 Other: Weight 92.986 kg
[2019-05-05 02:05] VITALS: BMI 29.4
[2019-05-05] MEDS: LACTATED RINGERS 1,000 ML IV SCH (02:06)
[2019-05-05] MEDS ORDERED: LACTATED RINGERS 1,000 ML IV SCH (02:30)
[2019-05-05 03:56] VITALS: RESP 16
[2019-05-05] MEDS ORDERED: ACETAMINOPHEN TAB 325 MG TAB PO PRN (05:17)
--- NOTE | 2019-05-05 08:36 | P.DS ---
Providers Date of admission: 05/05/19 01:00 Expected date of discharge: 05/05/19 Attending physician: Mk Olson Primary care physician: Mk Olson [facility] Course: Patient is doing much better this morning. Her cramping is essentially resolved. Vital signs stable afebrile. No other gross changes. She is feeling well at this time and she is stable for discharge. We'll have her call her joint maker machine today to give an update and then follow up with them as he directs. All the questions were answered for her and she is stable for discharge this time. Patient Condition at Discharge: Good Plan - Discharge Summary New Discharge Prescriptions: No Action Pnv,Calcium 72/Iron/Folic Acid [ Plus Tablet] 1 tab PO DAILY Folic Acid 1 mg PO BID Discharge Medication List Pnv,Calcium 72/Iron/Folic Acid [ Plus Tablet] 1 tab PO DAILY 07/06/18 [History] Folic Acid 1 mg PO BID 03/14/19 [History] Follow up Appointment(s)/Referral(s): Shamir Noriega DO [REFERRING] - 1 Week Activity/Diet/Wound Care/Special Instructions: Pelvic rest, continue conservative care and limited activities for the next few days. She is instructed to call her joint maker machine today at least she'll let him know what has been going on over the last 24 hours and discuss any further potential treatment options. Discharge Disposition: HOME SELF-CARE
[2019-05-05 08:51] VITALS: BP 113/58; PULSE 79; TEMP 97.9
== END 2019-05-05 09:15 | disposition home or self-care (01) ==
LOC: FBPOP 22:06 → 4FBP 05-05 01:00
PROVIDERS: ADMIT Obstetrics & Gynecology; ATTEND Obstetrics & Gynecology
DX: O60.02 Preterm labor without delivery, second trimester (principal); Z3A.23 23 weeks gestation of pregnancy; Z87.09 Personal history of other diseases of the respiratory system; Z90.49 Acquired absence of other specified parts of digestive tract; Z88.5 Allergy status to narcotic agent; Z88.0 Allergy status to penicillin; Z88.8 Allergy status to other drugs, medicaments and biological substances; Z88.1 Allergy status to other antibiotic agents; Z91.030 Bee allergy status; Z82.5 Family history of asthma and other chronic lower respiratory diseases
CPT/HCPCS: 99213; 82731; 81003; 76805; G0378

== ENCOUNTER 2019-05-22 15:07 | Outpatient (CLI) | payer OTHER ==
[2019-05-22 16:25] VITALS: BP 128/59; PULSE 73; RESP 16; TEMP 98.5
--- NOTE | 2019-06-10 09:29 | P.MSEPDOC ---
Presenting Problems - Arrival Data Date of Arrival on Unit: 05/22/19 Time of Arrival on Unit: 15:07 Mode of Transport: Wheelchair - Complaint OB-Reason for Admission/Chief Complaint: Observation/Evaluation Comment: fall on abdomen Medical History - Information : 6 Para: 2 Term: 1 : 1 Abortions: Spontaneous or Elective: 3 Number of Living Children: 2 - Gestational Age Gestational Age by ATTILA (wks/days): 25 Weeks and 3 Days - History Complications: Prior , Prior Review of Systems - Review of Systems Constitutional: No problems Breast: No problems ENT: No problems Cardiovascular: No problems Respiratory: No problems Gastrointestinal: No problems Genitourinary: No problems Musculoskeletal: No problems Neurological: No problems Skin: No problems Vital Signs - Temperature Temperature: 98.5 F Temperature Source: Oral - Pulse Right Sitting Pulse Rate: 73 Pulse Assessment Method: Automatic Cuff - Respirations Respiratory Rate: 16 Oxygen Delivery Method: Room Air - Blood Pressure Right Arm Blood Pressure: 128/59 Blood Pressure Mean: 82 Blood Pressure Source: Automatic Cuff Medical Screen Scoring (Pre) - Cervical Exam Dilation: Exam Deferred Effacement: Exam Deferred Membranes: Intact - Uterine Contractions Frequency: N/A Duration: > 40 seconds = 2 Intensity: N/A - Maternal Vital Signs Maternal Temperature: N/A Maternal Blood Pressure: N/A Signs of Preeclampsia: N/A Maternal Respirations: N/A - Maternal Trauma Maternal Trauma: N/A - Assessment - Baby A Baseline FHR: 145 Heart Rate - NICHD Category: Category I (Normal) = 0 Position: N/A Station: N/A - Total Score - Baby A Total Score - Baby A: 2 - Total Score - Baby B Total Score - Baby B: 2 - Total Score - Baby C Total Score - Baby C: 2 - Level of Risk - Baby A Level of Risk - Baby A: Low (0-5) - Level of Risk - Baby B Level of Risk - Baby B: Low (0-5) - Level of Risk - Baby C Level of Risk - Baby C: Low (0-5) Physician Notification (Pre) - Physician Notified Physician Notified Date: 05/22/19 Physician Notified Time: 16:21 Physician/Practitioner Notifed:: Dahlia New Order Received: Yes (D/c home after 1 more hour of monitoring for fall) Medical Screen Scoring (Post) - Assessment - Baby A Heart Rate: 140 Heart Rate - NICHD Category: Category I (Normal) = 0 Position: N/A Station: N/A - Total Score Total Score - Baby A: 0 - Post Treatment Level of Risk Post Treatment Level of Risk - Baby A: Low (0-5) Physician Notification (Post) - Physician Notified Physician Notified Date: 05/22/19 Physician Notified Time: 18:00 New Order Received: No - Notification Comment Comment: pt discharged to home undelivered with instructions Disposition - Disposition OB Disposition: Discharge to home Discharge Date: 05/22/19 Discharge Time: 18:00 I agree with the RN Medical Screening Exam: Yes Risk & Benefit of care provided described in d/c instruction: Yes Diagnosis: OTHER SPECIFIED COMPLICATIONS OF LABOR AND DELIVERY
== END 2019-05-22 18:00 | disposition home or self-care (01) ==
LOC: FBPOP 15:07
PROVIDERS: ATTEND Obstetrics & Gynecology
DX: O75.89 Other specified complications of labor and delivery (principal); Z3A.25 25 weeks gestation of pregnancy
CPT/HCPCS: 99213

== ENCOUNTER 2022-04-13 16:51 | Emergency (ER) | payer OTHER ==
[2022-04-13 17:02] VITALS: BP 114/50; PULSE 112; RESP 18; TEMP 98.5
--- NOTE | 2022-04-13 17:34 | XR ---
EXAMINATION TYPE: XR forearm LT DATE OF EXAM: 04/13/2022 COMPARISON: NONE HISTORY: Pain TECHNIQUE: 2 view FINDINGS: Radius and ulna appear intact. I see no fracture nor dislocation. There is subcutaneous billy ma over the anterior distal forearm. IMPRESSION: Soft tissue swelling. No fracture seen.
--- NOTE | 2022-04-13 17:37 | XR ---
EXAMINATION TYPE: XR wrist complete LT DATE OF EXAM: 04/13/2022 COMPARISON: NONE HISTORY: Pain TECHNIQUE: 4 views FINDINGS: Carpal bones are intact. Radiocarpal joint appears normal. Scaphoid appears normal. Metacar pals are intact. I see no fracture nor dislocation. IMPRESSION: Negative left wrist exam. No fracture.
--- NOTE | 2022-04-13 17:45 | ED ---
General Adult HPI - General Chief complaint: Extremity Injury, Upper Stated complaint: Arm injury Time Seen by Provider: 04/13/22 17:42 Source: patient Mode of arrival: ambulatory Limitations: no limitations - History of Present Illness Initial comments: Patient presents to the ED with her significant other for evaluation status post softball injury. Patient states that she was hit along her left forearm by a softball while playing softball this afternoon. Patient states that she finished the game prior to coming to the ED. Patient is only complaining of having left distal forearm pain. Patient denies any other injury or site of pain, focal numbness/weakness/neuro deficit, dyspnea, dizziness, or any other symptoms or complaints. - Related Data Home Medications Medication Instructions Recorded Confirmed Vit No.180/Iron/Folic 1 tab PO DAILY 07/06/18 05/22/19 [ Plus Tablet] Folic Acid 1 mg PO BID 03/14/19 05/22/19 Allergies Allergy/AdvReac Type Severity Reaction Status Date / Time amoxicillin Allergy Rash/Hives Verified 04/13/22 17:02 hydrocodone bitartrate Allergy Nausea & Verified 04/13/22 17:02 [From Vicodin] Vomiting Penicillins Allergy Anaphylaxis Verified 04/13/22 17:02 procaine HCl [From Novocain] Allergy Rash/Hives Verified 04/13/22 17:02 venom-honey bee Allergy Anaphylaxis Verified 04/13/22 17:02 [bee venom (honey bee)] Review of Systems ROS Statement: Those systems with pertinent positive or pertinent negative responses have been documented in the HPI. ROS Other: All systems not noted in ROS Statement are negative. Past Medical History Past Medical History: Asthma Additional Past Medical History / Comment(s): ovarian cyst, childhood asthma not on meds now, MTHFR mutation, multiple miscarriages History of Any Multi-Drug Resistant Organisms: None Reported Past Surgical History: Section, Cholecystectomy Additional Past Surgical History / Comment(s): c section x 1 Past Anesthesia/Blood Transfusion Reactions: No Reported Reaction Past Psychological History: No Psychological Hx Reported Smoking Status: Never smoker Past Alcohol Use History: None Reported, Rare Past Drug Use History: None Reported - Past Family History Mother Family Medical History: Asthma, Cancer General Exam Limitations: no limitations General appearance: alert, in no apparent distress Head exam: Present: atraumatic, normocephalic Eye exam: Present: normal appearance, EOMI ENT exam: Present: mucous membranes moist Respiratory exam: Present: normal lung sounds bilaterally. Absent: respiratory distress, wheezes, rales, rhonchi, stridor Cardiovascular Exam: Present: regular rate, normal rhythm, normal heart sounds, other (Normal radial pulses bilaterally) Extremities exam: Present: other (Swelling, tenderness and ecchymosis is noted to left distal forearm anteriorly; patient has full range motion at left wrist; patient has no left hand, wrist or elbow tenderness) Neurological exam: Present: alert, oriented X3. Absent: motor sensory deficit Psychiatric exam: Present: normal affect, normal mood Skin exam: Present: warm, dry, intact Course Vital Signs 04/13/22 17:00 Temperature 98.5 F Pulse Rate 112 H Respiratory 18 Rate Blood Pressure 114/50 O2 Sat by Pulse 99 Oximetry Medical Decision Making - Medical Decision Making Patient's left forearm and wrist x-rays are negative. Patient was counseled upper extremity contusions (rest, ice, compression, elevation). She was clearly explained return and follow-up instructions. Will discharge patient home with her significant other at this time. She feels comfortable with this plan. - Radiology Data Left forearm x-rays: Soft tissue swelling. No fracture seen. Left wrist x-rays: Negative left wrist exam. No fracture. Disposition Clinical Impression: Contusion of left forearm Disposition: HOME SELF-CARE Condition: Stable Instructions (If sedation given, give patient instructions): Contusion in Adults (ED) Additional Instructions: Return to the ER immediately should you develop new or worsening pain or symptoms. Follow up closely with you primary care provider. Is patient prescribed a controlled substance at d/c from ED?: No Referrals: Alexander Sahni MD [Primary Care Provider] - 1-2 days Time of Disposition: 17:50
[2022-04-13] MEDS ORDERED: ZIPRASIDONE 20 MG VIAL IM STA (18:02)
[2022-04-13] MEDS ORDERED: LORazepam 2 MG/ML INJ IM STA (18:03)
== END 2022-04-13 17:59 | disposition home or self-care (01) ==
LOC: EC 16:51
DX: S50.12XA Contusion of left forearm, initial encounter (principal); W21.07XA Struck by softball, initial encounter; Y93.64 Activity, baseball
CPT/HCPCS: 99283

== ENCOUNTER 2024-07-07 17:22 | Emergency (ER) | payer BC, OTHER ==
--- NOTE | 2024-07-07 17:58 | ED ---
SOB HPI - General Chief Complaint: Shortness of Breath Stated Complaint: Billateral leg swelling,SOB Time Seen by Provider: 07/07/24 17:36 Source: patient, RN notes reviewed Mode of arrival: ambulatory Limitations: no limitations - History of Present Illness Initial Comments: This is a 33-year-old female who presents to the emergency department for extre mity swelling and shortness of breath. States that over the last few weeks she started to notice swelling in her lower extremities that seems to be getting worse and increasingly painful. Over the last couple of days she started to notice herself feeling short of breath with associated chest pain and yesterday she started to notice swelling going into her hands. She saw her primary care provider and had an EKG and blood work done. She was told that the EKG seemed somewhat abnormal and they were going to schedule her for an echocardiogram. However, she then found out that her blood work demonstrated somewhat abnormal kidney function and she was told that that may be the cause of her symptoms. She was prescribed HCTZ yesterday, but has not yet taken it. She was supposed to follow-up next week for additional blood work. MD Complaint: shortness of breath - Related Data Home Medications Medication Instructions Recorded Confirmed Fluticasone Nasal Burton [Flonase 1 spray EA NOSTRIL DIRECTED 07/07/24 07/07/24 Nasal Burton] Triamterene/Hydrochlorothiazid 1 tab PO DIRECTED 07/07/24 07/07/24 [Triamterene-Hctz 37.5-25 mg Tb] methylPREDNISolone Dose Pack See Taper PO DIRECTED 07/07/24 07/07/24 [Medrol Dose Pack] Previous Rx's Medication Instructions Recorded Ibuprofen [Motrin] 800 mg PO Q8H PRN #30 tab 07/07/24 methocarbamoL [Robaxin-750] 1,500 mg PO TID PRN #30 tab 07/07/24 Allergies Allergy/AdvReac Type Severity Reaction Status Date / Time amoxicillin Allergy Rash/Hives Verified 07/07/24 18:40 hydrocodone bitartrate Allergy Nausea & Verified 07/07/24 18:40 [From Vicodin] Vomiting Penicillins Allergy Anaphylaxis Verified 07/07/24 18:40 procaine HCl [From Novocain] Allergy Rash/Hives Verified 07/07/24 18:40 venom-honey bee Allergy Anaphylaxis Verified 07/07/24 18:40 [bee venom (honey bee)] Review of Systems ROS Statement: Those systems with pertinent positive or pertinent negative responses have been documented in the HPI. ROS Other: All systems not noted in ROS Statement are negative. Past Medical History Past Medical History: Asthma Additional Past Medical History / Comment(s): ovarian cyst, childhood asthma not on meds now, MTHFR mutation, multiple miscarriages History of Any Multi-Drug Resistant Organisms: None Reported Past Surgical History: Section, Cholecystectomy Additional Past Surgical History / Comment(s): c section x 1 Past Anesthesia/Blood Transfusion Reactions: No Reported Reaction Past Psychological History: No Psychological Hx Reported Smoking Status: Never smoker Past Alcohol Use History: None Reported, Rare Past Drug Use History: None Reported - Past Family History Mother Family Medical History: Asthma, Cancer General Exam Limitations: no limitations General appearance: alert, in no apparent distress Head exam: Present: atraumatic, normocephalic, normal inspection Respiratory exam: Present: normal lung sounds bilaterally. Absent: respiratory distress, wheezes, rales, rhonchi, stridor Cardiovascular Exam: Present: regular rate, normal rhythm, normal heart sounds. Absent: systolic murmur, diastolic murmur, rubs, gallop, clicks Extremities exam: Present: other (Tenderness and swelling to the bilateral lower extremities. 2+ DP and PT pulses bilaterally) Neurological exam: Present: alert, oriented X3, CN II-XII intact Psychiatric exam: Present: normal affect, normal mood Skin exam: Present: warm, dry, intact, normal color. Absent: rash Course Vital Signs 07/07/24 07/07/24 07/07/24 17:30 20:19 21:45 Temperature 97.8 F 97.3 F L Pulse Rate 59 L 60 72 Respiratory 20 19 19 Rate Blood Pressure 150/86 122/69 106/62 O2 Sat by Pulse 100 99 99 Oximetry Medical Decision Making - Medical Decision Making This is a 33 year old female who presents to the emergency department for shortness of breath and swelling in her extremities. Was pt. sent in by a medical professional or institution? @ -No Did you speak to anyone other than the patient for history? @ -No Did you review nursing and triage notes? @ -Yes, and I agree, it is accurate with regards to the patient's symptoms. Were old charts reviewed? @ -No Differential Diagnosis? @ -Differential Dyspnea: Coronary syndrome, arrhythmia, tamponade, asthma, COPD, pulmonary embolism, pneumonia, pneumothorax, pulmonary effusion, anaphylaxis, diabetic ketoacidosis, flailed chest, pulmonary contusion, diaphragmatic rupture, anemia, neuromuscular, this is not meant to be an all-inclusive list. EKG interpreted by me (3pts min.)? @ -EKG interpreted by me demonstrating the following: Sinus bradycardia. Ventricular rate 53 bpm, RI interval 184 ms, QRS duration 86 ms, QTc 405 ms. X-rays interpreted by me (1pt min.)? @ -Chest x-ray obtained, my interpretation identifies no localized consolidations or infiltrates. CT interpreted by me (1pt min.)? @ -Not obtained U/S interpreted by me (1pt. min.)? @ -Duplex ultrasound of the bilateral lower extremities obtained. My interpretation identifies no evidence of a DVT. What testing was considered but not performed? (CT, X-rays, U/S, labs)? Why? @ -None What meds were considered but not given? Why? @ -None Did you discuss the management of the patient with other professionals? @ -No Did you reconcile home meds? @ -No Was smoking cessation discussed for >3mins.? @ -No Was critical care preformed (if so, how long)? @ -No Were there social determinants of health that impacted care today? How? (Homelessness, low income, unemployed, alcoholism, drug addiction, transportatio n, low edu. Level, literacy, decrease access to med. care, residential, rehab)? @ -No Was there de-escalation of care discussed even if they declined? (Discuss DNR or withdrawal of care, Hospice)? @ -No What co-morbidities impacted this encounter? (DM, HTN, Smoking, COPD, CAD, Cancer, CVA, Hep., AIDS, mental health diagnosis, sleep apnea, morbid obesity)? @ -None Was patient admitted / discharged? @ -Discharged. Lab work entirely unremarkable, including a negative D-dimer, negative troponin, and normal BNP. Renal function within normal limits. Patient reports abnormal renal function with her primary care provider. Chest x-ray reveals no acute process. Duplex ultrasound of the bilateral lower extremities reveals no evidence of a DVT. The cause of her symptoms is not entirely clear. Advised she start the HCTZ that was prescribed. She was given a prescription for ibuprofen and Robaxin to see if that offers any benefit. We also discussed elevating her legs and using compression stockings. Patient discharged home in stable condition. Advised close follow-up with her PCP. Case discussed with ED attending Dr. Morrison. Return precautions reviewed in depth, the patient is instructed to return to the emergency department with any new, worsening, or concerning symptoms. Patient verbalized understanding. Undiagnosed new problem with uncertain prognosis? @ -None Drug Therapy requiring intensive monitoring for toxicity (Heparin, Nitro, Insulin, Cardizem)? @ -None Were any procedures done? @ -None Diagnosis/symptom? @ -Leg pain and swelling, PATRICIA Acute, or Chronic, or Acute on Chronic? @ -Acute Uncomplicated (without systemic symptoms) or Complicated (systemic symptoms)? @ -Uncomplicated Side effects of treatment? @ -None Exacerbation, Progression, or Severe Exacerbation] @ -Not applicable Poses a threat to life or bodily function? @ -No - Lab Data Result diagrams: 07/07/24 18:37 07/07/24 18:37 Lab Results 07/07/24 07/07/24 07/07/24 Range/Units 18:37 18:37 18:37 WBC 8.1 (3.8-10.6) k/uL RBC 4.45 (3.80-5.40) m/uL Hgb 12.0 (11.4-16.0) gm/dL Hct 36.4 (34.0-46.0) % MCV 81.7 (80.0-100.0) fL MCH 26.9 (25.0-35.0) pg MCHC 32.9 (31.0-37.0) g/dL RDW 13.7 (11.5-15.5) % Plt Count 352 (150-450) k/uL MPV 6.8 Neutrophils % 68 % Lymphocytes % 27 % Monocytes % 4 % Eosinophils % 1 % Basophils % 0 % Neutrophils # 5.5 (1.3-7.7) k/uL Lymphocytes # 2.2 (1.0-4.8) k/uL Monocytes # 0.3 (0-1.0) k/uL Eosinophils # 0.1 (0-0.7) k/uL Basophils # 0.0 (0-0.2) k/uL PT 10.6 (10.0-12.5) sec INR 1.0 (<1.2) APTT 26.9 (22.0-30.0) sec D-Dimer 0.41 (<0.60) mg/L FEU Sodium 139 (137-145) mmol/L Potassium 3.9 (3.5-5.1) mmol/L Chloride 106 (98-107) mmol/L Carbon Dioxide 28 (22-30) mmol/L Anion Gap 5 mmol/L BUN 9 (7-17) mg/dL Creatinine 0.99 (0.52-1.04) mg/dL Est GFR (CKD-EPI)AfAm 86 (>60 ml/min/1.73 sqM) Est GFR (CKD-EPI)NonAf 74 (>60 ml/min/1.73 sqM) Glucose 81 (74-99) mg/dL Plasma Lactic Acid Travis (0.7-2.0) mmol/L Calcium 8.8 (8.4-10.2) mg/dL Magnesium 1.9 (1.6-2.3) mg/dL Total Bilirubin 0.3 (0.2-1.3) mg/dL AST 20 (14-36) U/L ALT 15 (4-34) U/L Alkaline Phosphatase 48 (38-126) U/L Creatine Kinase (30-135) U/L Troponin I (0.000-0.034) ng/mL NT-Pro-B Natriuret Pep 60 pg/mL Total Protein 6.2 L (6.3-8.2) g/dL Albumin 3.6 (3.5-5.0) g/dL HCG, Qual Not Detected Urine Color Urine Appearance (Clear) Urine pH (5.0-8.0) Ur Specific Clay (1.001-1.035) Urine Protein (Negative) Urine Glucose (UA) (Negative) Urine Ketones (Negative) Urine Blood (Negative) Urine Nitrite (Negative) Urine Bilirubin (Negative) Urine Urobilinogen (<2.0) mg/dL Ur Leukocyte Esterase (Negative) 07/07/24 07/07/24 07/07/24 Range/Units 18:37 18:37 18:37 WBC (3.8-10.6) k/uL RBC (3.80-5.40) m/uL Hgb (11.4-16.0) gm/dL Hct (34.0-46.0) % MCV (80.0-100.0) fL MCH (25.0-35.0) pg MCHC (31.0-37.0) g/dL RDW (11.5-15.5) % Plt Count (150-450) k/uL MPV Neutrophils % % Lymphocytes % % Monocytes % % Eosinophils % % Basophils % % Neutrophils # (1.3-7.7) k/uL Lymphocytes # (1.0-4.8) k/uL Monocytes # (0-1.0) k/uL Eosinophils # (0-0.7) k/uL Basophils # (0-0.2) k/uL PT (10.0-12.5) sec INR (<1.2) APTT (22.0-30.0) sec D-Dimer (<0.60) mg/L FEU Sodium (137-145) mmol/L Potassium (3.5-5.1) mmol/L Chloride (98-107) mmol/L Carbon Dioxide (22-30) mmol/L Anion Gap mmol/L BUN (7-17) mg/dL Creatinine (0.52-1.04) mg/dL Est GFR (CKD-EPI)AfAm (>60 ml/min/1.73 sqM) Est GFR (CKD-EPI)NonAf (>60 ml/min/1.73 sqM) Glucose (74-99) mg/dL Plasma Lactic Acid Travis 0.6 L (0.7-2.0) mmol/L Calcium (8.4-10.2) mg/dL Magnesium (1.6-2.3) mg/dL Total Bilirubin (0.2-1.3) mg/dL AST (14-36) U/L ALT (4-34) U/L Alkaline Phosphatase (38-126) U/L Creatine Kinase 64 (30-135) U/L Troponin I <0.012 (0.000-0.034) ng/mL NT-Pro-B Natriuret Pep pg/mL Total Protein (6.3-8.2) g/dL Albumin (3.5-5.0) g/dL HCG, Qual Urine Color Urine Appearance (Clear) Urine pH (5.0-8.0) Ur Specific Clay (1.001-1.035) Urine Protein (Negative) Urine Glucose (UA) (Negative) Urine Ketones (Negative) Urine Blood (Negative) Urine Nitrite (Negative) Urine Bilirubin (Negative) Urine Urobilinogen (<2.0) mg/dL Ur Leukocyte Esterase (Negative) 07/07/24 Range/Units 19:42 WBC (3.8-10.6) k/uL RBC (3.80-5.40) m/uL Hgb (11.4-16.0) gm/dL Hct (34.0-46.0) % MCV (80.0-100.0) fL MCH (25.0-35.0) pg MCHC (31.0-37.0) g/dL RDW (11.5-15.5) % Plt Count (150-450) k/uL MPV Neutrophils % % Lymphocytes % % Monocytes % % Eosinophils % % Basophils % % Neutrophils # (1.3-7.7) k/uL Lymphocytes # (1.0-4.8) k/uL Monocytes # (0-1.0) k/uL Eosinophils # (0-0.7) k/uL Basophils # (0-0.2) k/uL PT (10.0-12.5) sec INR (<1.2) APTT (22.0-30.0) sec D-Dimer (<0.60) mg/L FEU Sodium (137-145) mmol/L Potassium (3.5-5.1) mmol/L Chloride (98-107) mmol/L Carbon Dioxide (22-30) mmol/L Anion Gap mmol/L BUN (7-17) mg/dL Creatinine (0.52-1.04) mg/dL Est GFR (CKD-EPI)AfAm (>60 ml/min/1.73 sqM) Est GFR (CKD-EPI)NonAf (>60 ml/min/1.73 sqM) Glucose (74-99) mg/dL Plasma Lactic Acid Travis (0.7-2.0) mmol/L Calcium (8.4-10.2) mg/dL Magnesium (1.6-2.3) mg/dL Total Bilirubin (0.2-1.3) mg/dL AST (14-36) U/L ALT (4-34) U/L Alkaline Phosphatase (38-126) U/L Creatine Kinase (30-135) U/L Troponin I (0.000-0.034) ng/mL NT-Pro-B Natriuret Pep pg/mL Total Protein (6.3-8.2) g/dL Albumin (3.5-5.0) g/dL HCG, Qual Urine Color Light Yellow Urine Appearance Clear (Clear) Urine pH 6.5 (5.0-8.0) Ur Specific Clay 1.023 (1.001-1.035) Urine Protein Negative (Negative) Urine Glucose (UA) Negative (Negative) Urine Ketones Negative (Negative) Urine Blood Negative (Negative) Urine Nitrite Negative (Negative) Urine Bilirubin Negative (Negative) Urine Urobilinogen <2.0 (<2.0) mg/dL Ur Leukocyte Esterase Negative (Negative) - Radiology Data Radiology results: report reviewed, image reviewed Disposition Clinical Impression: Leg pain, bilateral, Swelling of lower extremity, Shortness of breath Disposition: HOME SELF-CARE Instructions (If sedation given, give patient instructions): Leg Pain (ED), Shortness of Breath (ED) Additional Instructions: Return to the emergency department with any new, worsening, or concerning symptoms. Try taking ibuprofen every 8 hours for the next few days. Take Tylenol as needed for pain relief as well. Take the Robaxin as 1 to 2 tablets up to 3-4 times daily. Be aware that this may make you drowsy. Elevate the legs when possible. You can also try using compression stockings. Follow up with your primary care provider in 1-2 days. Prescriptions: Ibuprofen [Motrin] 800 mg PO Q8H PRN #30 tab PRN Reason: Pain methocarbamoL [Robaxin-750] 1,500 mg PO TID PRN #30 tab PRN Reason: Pain Is patient prescribed a controlled substance at d/c from ED?: No Referrals: Alexander Sahni [Primary Care Provider] - 1-2 days Time of Disposition: 21:24
--- NOTE | 2024-07-07 18:27 | XR ---
EXAMINATION TYPE: XR chest 2V DATE OF EXAM: 07/07/2024 COMPARISON: 07/20/2018 HISTORY: Chest pain TECHNIQUE: Frontal and lateral views of the chest are obtained. FINDINGS: There is no focal air space opacity. No evidence for pneumothorax. No pleural effusion. The cardiac silhouette size is within normal limits. The osseous structures are grossly intact. IMPRESSION: 1. No acute cardiopulmonary process. [facility], , 07/07/2024 6:25 PM
[2024-07-07 19:11] LABS: Basophils % (A) 0 %; Eosinophils # (A) 0.1 k/uL (0-0.7); Eosinophils % (A) 1 %; HCT 36.4 % (34.0-46.0); Lymphocytes # (A) 2.2 k/uL (1.0-4.8); Lymphocytes % (A) 27 %; MCH 26.9 pg (25.0-35.0); MCHC 32.9 g/dL (31.0-37.0); MCV 81.7 fL (80.0-100.0); Mean Platelet Volume 6.8; Monocytes # (A) 0.3 k/uL (0-1.0); Monocytes % (A) 4 %; Neutrophils # (A) 5.5 k/uL (1.3-7.7); Neutrophils % (A) 68 %; Platelet Count 352 k/uL (150-450); RBC 4.45 m/uL (3.80-5.40); RDW 13.7 % (11.5-15.5); WBC 8.1 k/uL (3.8-10.6)
[2024-07-07 19:22] LABS: HCG,Qualitative Serum Not Detected
[2024-07-07 19:24] LABS: ALT 15 U/L (4-34); AST 20 U/L (14-36); African American GFR (CKD) 86 (>60 ml/min/1.73 sqM); Albumin 3.6 g/dL (3.5-5.0); Alkaline Phosphatase 48 U/L (38-126); Anion Gap 5 mmol/L; Blood Urea Nitrogen 9 mg/dL (7-17); Calcium 8.8 mg/dL (8.4-10.2); Carbon Dioxide 28 mmol/L (22-30); Chloride 106 mmol/L (98-107); Glucose 81 mg/dL (74-99); Magnesium 1.9 mg/dL (1.6-2.3); Non-African American GFR(CKD) 74 (>60 ml/min/1.73 sqM); Potassium 3.9 mmol/L (3.5-5.1); Sodium 139 mmol/L (137-145); Total Bilirubin 0.3 mg/dL (0.2-1.3); Total Protein 6.2 g/dL (6.3-8.2)
[2024-07-07 19:30] LABS: Partial Thromboplastin Time 26.9 sec (22.0-30.0); Prothrombin Time 10.6 sec (10.0-12.5)
[2024-07-07 19:33] LABS: NT-Pro-B-Type Natriuretic Pept 60 pg/mL
[2024-07-07] MEDS: KETOROLAC 15 MG/ML 1 ML VIAL IVP STA (20:11)
[2024-07-07 20:17] LABS: Appearance,Urine Clear (Clear); Bilirubin,Urine Negative (Negative); Blood,Urine Negative (Negative); Color,Urine Light Yellow; Glucose,Urine (UA) Negative (Negative); Ketones,Urine Negative (Negative); Leukocyte Esterase,Urine Negative (Negative); Nitrite,Urine Negative (Negative); PH, Urine 6.5 (5.0-8.0); Protein,Urine Negative (Negative); Specific Gravity,Urine 1.023 (1.001-1.035); Urobilinogen,Urine <2.0 mg/dL (<2.0)
[2024-07-07 20:21] VITALS: RESP 19
--- NOTE | 2024-07-07 20:22 | US ---
EXAMINATION TYPE: US venous doppler duplex LE DATE OF EXAM: 07/07/2024 5:50 PM COMPARISON: NONE CLINICAL INDICATION: Female, 33 years old with history of Pain and swelling; Patient states pain and swelling for 2 weeks. Not on thinners. No hx of DVT SIDE PERFORMED: Bilateral TECHNIQUE: The lower extremity deep venous system is examined utilizing real time linear array sonog mildred with graded compression, color doppler sonography, and spectral doppler. VESSELS IMAGED: Common Femoral Vein Deep Femoral Vein Greater Saphenous Vein * Femoral Vein Popliteal Vein Small Saphenous Vein * Proximal Calf Veins (* superficial vessels) Right Leg: Appears negative for DVT Left Leg: Appears negative for DVT IMPRESSION: Grayscale, color doppler, spectral doppler imaging performed of the deep veins of the lo wer extremities. There is normal flow, compressibility, vascular waveforms. [facility], , 07/07/2024 8:20 PM
[2024-07-07 22:01] VITALS: BP 106/62; PULSE 72; TEMP 97.3
== END 2024-07-07 22:00 | disposition home or self-care (01) ==
LOC: EC 17:22
CPT/HCPCS: 36415; 71046; 80053; 81003; 82550; 83605; 83735; 83880; 84484; 84703; 85025; 85379; 85610; 85730; 93005; 93970; 96374; 99285

== ENCOUNTER → 2024-08-10 | Outpatient (CLI) | payer BC, OTHER ==
--- NOTE | 2024-08-11 10:10 | CA ---
Transthoracic Echo Report Name: Jazlyn Caballero Age: 33 Gender: F : 1990 Exam Date: 08/10/2024 17:02 Exam Location: [place] Echo Ht (in): 70 Wt (lb): 230 Ordering Physician: Alexander Sahni MD Attending/Referring Phys: Pascale Sethi [facility] [employer] Samantha Combs RDCS Procedure CPT: Indications: R06.09 DYSPNEA I10 HTN Cardiac Hx: Technical Quality: Good Contrast 1: Total Dose (mL): Contrast 2: Total Dose (mL): MEASUREMENTS (Male / Female) Normal Values 2D ECHO LV Diastolic Diameter PLAX 4.4 cm 4.2 - 5.9 / 3.9 - 5.3 cm LV Systolic Diameter PLAX 2.7 cm IVS Diastolic Thickness 1.0 cm 0.6 - 1.0 / 0.6 - 0.9 cm LVPW Diastolic Thickness 1.0 cm 0.6 - 1.0 / 0.6 - 0.9 cm LV Relative Wall Thickness 0.5 RV Internal Dim ED PLAX 3.0 cm LA Systolic Diameter LX 3.7 cm 3.0 - 4.0 / 2.7 - 3.8 cm LV Diastolic Volume MOD 4C 85.8 cm??? LV Systolic Volume MOD 4C 38.5 cm??? LV Ejection Fraction MOD 4C 55.1 % LV Cardiac Index MOD 4C 1356.4 cm???/min???m??? LV Diastolic Length 4C 8.7 cm LV Systolic Length 4C 6.6 cm LV Diastolic Volume MOD 2C 86.0 cm??? LV Systolic Volume MOD 2C 29.9 cm??? LV Ejection Fraction MOD 2C 65.2 % LV Cardiac Index MOD 2C 1606.6 cm???/min???m??? LV Diastolic Length 2C 9.1 cm LV Systolic Length 2C 7.3 cm M-MODE Aortic Root Diameter MM 2.6 cm LA Systolic Diameter MM 2.2 cm LA Ao Ratio MM 0.8 DOPPLER AV Peak Velocity 180.8 cm/s AV Peak Gradient 13.1 mmHg Mitral E Point Velocity 119.8 cm/s Mitral A Point Velocity 56.6 cm/s Mitral E to A Ratio 2.1 MV Deceleration Time 207.8 ms MV E' Velocity 13.2 cm/s Mitral E to MV E' Ratio 9.1 TR Peak Velocity 196.4 cm/s TR Peak Gradient 15.4 mmHg Right Ventricular Systolic Press 25.4 mmHg FINDINGS Left Ventricle Left ventricular ejection fraction is estimated at 55-60 %. Left ventricular cavity size normal. Mildly increased septal wall thickness. Mildly increased posterior wall thickness. Normal left ventricular wall motion. Right Ventricle Normal right ventricular size and function. Right ventricular systolic pressure within normal limits. Right Atrium Normal right atrial size. No right atrial thrombus or mass seen. Left Atrium Normal left atrial size. No left atrial thrombus or mass present. Mitral Valve Structurally normal mitral valve. No mitral stenosis, regurgitation or prolapse. Aortic Valve Trileaflet aortic valve. No aortic valve stenosis or regurgitation. Tricuspid Valve Structurally normal tricuspid valve. Trace to mild tricuspid regurgitation. Pulmonic Valve Structurally normal pulmonic valve. No pulmonic regurgitation. Pericardium No pericardial or pleural effusion. Aorta Normal size aortic root and proximal ascending aorta. CONCLUSIONS Normal LV systolic function Previewed by: Dr. Allen Walls MD (Electronically Signed) Final Date: 11 August 2024 10:09
== END | disposition home or self-care (01) ==
LOC: RADECHMAIN 16:48
PROVIDERS: ATTEND Family Medicine
DX: R06.09 Other forms of dyspnea (principal)
CPT/HCPCS: 93306